=== PATIENT | female | born 1940 | race Caucasian/White ===

== ENCOUNTER 2018-03-24 11:52 | Outpatient (CLI) | payer MEDICARE, MEDICAID ==
[2018-03-24 13:32] LABS: Estimated GFR-MDRD - POC Greater than 90
--- NOTE | 2018-03-24 13:32 | CT ---
CT CHEST AND ABDOMEN AND PELVIS WITH CONTRAST: Multiple axial tomograms were obtained through the chest, abdomen, and pelvis with IV enhancement. INDICATION: Sarcoma left back. Exam performed for staging. No comparison available. FINDINGS: CT CHSST: The lung rashid appear clear. No pulmonary mass or infiltrate seen. No evidence of effusion. The m ediastinum is unremarkable. There is a large fixed diaphragmatic hernia with portion of the stomach above the diaphragm. Thoracic aorta and proximal pulmonary arteries are opacified and appear unremar kable. Mild atherosclerotic changes involving the thoracic aorta. No evidence of axillary adenopath y. Degenerative spurring changes are seen. The thoracic vertebrae maintain height and alignment. N o osseous abnormality identified. IMPRESSION: Large fixed diaphragmatic hernia in the lower chest. No acute lung process or evidence of metastasis . CT ABDOMEN AND PELVIS: There is a large multilobulated cyst in the right lobe of the liver which measures up to 7 cm. There are a few other scattered tiny cystic lesions in the liver. The liver, spleen, and pancreas are oth erwise unremarkable. The fixed diaphragmatic hernia is again seen as described on chest CT. Adrenal glands normal. There are at least 2 right renal cysts, 1 measuring approximately 2.6 cm and the other measuring appr oximately 1.6 cm. Kidneys are otherwise unremarkable. Small bowel loops appear normal. Scattered diverticula throughout the colon. Aorta is normal caliber. No evidence of adenopathy identified. Uterus and adnexa appear unremarkable. Small umbilical hernia is noted. Severe degenerative changes at both hips. The femoral heads are deformed with severe hypertrophic an d subchondral cystic changes on both sides of the joints bilaterally. There is a large heterogeneous soft tissue mass involving the subcutaneous tissues of the left flank region. This begins at the level of the posterolateral 9th rib. This large soft tissue mass measure s approximately 15 cm AP dimension x 11 cm width in the axial plane. It produces mass effect on the posterior musculature of the chest wall, but there is no evidence of muscle involvement. IMPRESSION: 1. Large soft tissue mass in the subcutaneous tissues of the left flank region as described. 2. Large hepatic cyst with other scattered smaller cysts. 3. Fixed diaphragmatic hernia. 4. Right renal cyst. 5. Tiny umbilical hernia. POS: [facility]
== END 2018-03-24 11:53 | disposition home or self-care (01) ==
LOC: CT 11:52
PROVIDERS: ATTEND Radiology Radiation Oncology
DX: C49.6 Malignant neoplasm of connective and soft tissue of trunk, unspecified (principal); K76.89 Other specified diseases of liver; K44.9 Diaphragmatic hernia without obstruction or gangrene; N28.1 Cyst of kidney, acquired; K42.9 Umbilical hernia without obstruction or gangrene
CPT/HCPCS: 71260; 74177; 82565

== ENCOUNTER 2018-06-22 16:35 | Inpatient (IN) | payer MEDICARE, MEDICAID ==
[~2018-06-22 16:35] MED LIST: ISOVUE-370 76%-LOCM 1 ML ONE
[2018-06-22 17:31] LABS: #Eosinphils 0.1 thou/uL (0.0-0.7); #Lymphocytes 1.6 thou/uL (1.20-3.40); #Monocytes 1.3 thou/uL (0.11-0.59); #Neutrophils 14.4 thou/uL (1.40-6.50); %Basophils 0.1 % (0.0-1.0); %Eosinophils 0.7 % (0.0-10.0); %Lymphocytes 9.3 % (21.0-51.0); %Monocytes 7.4 % (0.0-10.0); %Neutrophils 82.5 % (42.0-75.0); Hemoglobin 8.8 g/dL (12.0-16.0); Mean Corpuscular HGB CONC 31.7 g/dL (32.0-36.0); Mean Corpuscular Hemoglobin 26.5 pg (27.0-31.0); Mean Corpuscular Volume 83.7 fL (78.0-98.0); Mean Platelet Volume 7.3 fL (7.4-10.4); Platelet Count 821 thou/uL (130-400); RBC Distribution Width 17.1 % (11.5-14.5); Red Blood Cell (RBC) Count 3.33 mill/uL (4.20-5.40); White Blood Cell (WBC) Count 17.5 thou/uL (4.8-10.8)
[2018-06-22 17:42] LABS: Bilirubin Negative (Negative); Blood, Urine Negative (Negative); Clarity CLEAR (Clear); Glucose, Urine (Dipstick) Negative (Negative); Leukocyte Negative (Negative); Nitrite Negative (Negative); Protein, Urine (Dipstick) Negative (Neg-Trace); Specific Gravity, Urine 1.009 (1.002-1.036); Urobilinogen 0.2 mg/dL (0.2-1.0)
[2018-06-22 18:43] LABS: ALT (SGPT) 38 U/L (8-55); AST (SGOT) 47 U/L (5-34); Albumin 2.8 g/dL (3.4-4.8); Alkaline Phosphatase 176 U/L (40-150); Anion Gap 20 mmol/L (10-20); BUN (Urea Nitrogen) 10 mg/dL (9.8-20.1); Bilirubin, Total 0.4 mg/dL (0.2-1.2); Calc. Creatinine Clearance 0 mL/min (70-130); Calcium 9.3 mg/dL (7.8-10.44); Carbon Dioxide 21 mmol/L (23-31); Chloride 103 mmol/L (98-107); Estimated GFR-MDRD 74; Globulin 3.4 g/dL (2.4-3.5); Glucose 134 mg/dL (83-110); Potassium 4.2 mmol/L (3.5-5.1); Protein, Total 6.2 g/dL (6.0-8.3); Sodium 140 mmol/L (136-145)
--- NOTE | 2018-06-22 18:49 | RAD ---
PORTABLE CHEST 06/22/18 PROVIDED CLINICAL HISTORY: Lower extremity swelling. FINDINGS: The cardiac silhouette appears enlarged. No focal consolidation, pleural fluid, or pneumothorax appar ent. Calcified costochondral cartilage is noted. Hiatal hernia is noted. IMPRESSION: Cardiomegaly without evidence for an acute cardiopulmonary process. POS: [facility]
--- NOTE | 2018-06-22 19:54 | ULT ---
BILATERAL LOWER EXTREMITY VENOUS DOPPLER 06/22/18 PROVIDED CLINICAL HISTORY: Bilateral lower extremity swelling. FINDINGS: Mattson scale and color doppler sonography of the common femoral, femoral, popliteal, posterior tibial, greater saphenous and profunda femoral veins was performed. The right femoral vein and right poplitea l vein were not visualized on the basis of technical factors. The remainder of the interrogated venou s structures of the lower extremities demonstrate a normal sonographic appearance. IMPRESSION: No sonographic evidence for lower extremity deep venous thrombosis with limitations as above. POS: [facility]
[2018-06-22] MEDS ORDERED: Acetaminophen 325 MG TAB ONE (20:17)
--- NOTE | 2018-06-22 21:51 | CT ---
CT PULMONARY ANGIOGRAM WITH IV CONTRAST AND 3D MIP RECONSTRUCTIONS 06/22/18 PROVIDED CLINICAL HISTORY: Shortness of breath and chest pain. FINDINGS: Comparison is made with the study dated 03/24/18. There is no evidence for central or segmental pulmonary embolus. The heart, pericardium and great ves sels demonstrate a stable CT appearance. There is interval development of a small left pleural effusi on. The lungs are free of significant opacity. The airway appears patent and of normal caliber. Moder ate to large hiatal hernias are demonstrated. No evidence for pneumothorax. Right hepatic cyst is aga in seen. Partially visualized large left flank soft tissue mass. IMPRESSION: 1. No evidence for central or segmental pulmonary embolus. 2. Interval development of small left pleural effusion. POS: [facility]
--- NOTE | 2018-06-22 21:57 | PDOC.FPRHP ---
- History of Present Illness Chief Complaint: swelling History of Present Illness: The patient is a 78YOF w/ a PMH significant for recently diagnosed DMII and a rare untreated sarcoma who presented to the ED with a CC of LE swelling that has gotten progressively worse since her discharge from [facility] about 1 week ago. The patient stated that immediately following her discharge she felt to be in her usual state of health but about 24 hours later, she began to have a steady decline reporting progressively worsening lower extremity swelling with associated weakness and fatigue. She denies any associated SOB, PND, orthopnea, chest or abdominal pain. She denies ever having had any type of cardiac workup before. 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 She was also given IV abx for 6 days for an unknown infection. Regarding her sarcoma, the patient reports being started on a 1 week trial of gleevac approx 6 months ago during which she became anuric. She therefore stopped taking it and and anuria resolved. She was recommended to follow-up at at [facility] but has been unable to get this set up 2/2 poor recent state of health. ED Course: 40mg IV lasix x1 & 650 PO tylenol - Allergies/Adverse Reactions Allergies Allergy/AdvReac Type Severity Reaction Status Date / Time No Known Drug Allergies Allergy Verified 06/22/18 23:37 - Home Medications Medication Instructions Recorded Confirmed Type Furosemide 1 tab PO DAILY 06/22/18 06/22/18 History Potassium Chloride 1 tab PO DAILY 06/22/18 06/22/18 History metFORMIN HCl [Metformin HCl] 1 tab PO BID 06/22/18 06/22/18 History - History PMHx: DMII, untreated sarcoma PSHx: ovarian cystectomy FHx: non-contributory Social: Lives at home alone in . Denies any tobacco or drug use. Drinks on special occasions. - Review of Systems General: reports: fatigue. denies: fever/chills, weight/appetite/sleep changes Eyes: denies: eye pain, vision changes ENT: reports: other (no sore throat). denies: nasal congestion Respiratory: reports: cough. denies: shortness of breath Cardiovascular: reports: edema. denies: chest pain, palpitation, paroxysmal nocturnal dyspnea, orthopnea Gastrointestinal: denies: nausea, vomiting, diarrhea, constipation, abdominal pain Genitourinary: reports: other (no hematuria). denies: dysuria Musculoskeletal: reports: pain, tenderness, swelling Neurological: denies: numbness, syncope, weakness Psychological: denies: anxiety, depression - Vital signs BP: 168/72 HR: 100 RR: 20 Tmax: 98.4F Pox: 95% on RA Wt: 82.971 kg - Physical Exam Constitutional: NAD, awake, alert and oriented, well developed HEENT: normocephalic and atraumatic, grossly normal vision, grossly normal hearing Neck: supple, FROM, other (JVD present bilaterally) Heart: normal S1/S2, pulses present, other (tachycardic with 3/6 systolic flow murmur heard best at right upper border 3+ pitting edema present in B/L LEs up to knees) Lungs: CTAB, no respiratory distress, good air movement, no rales/rhonchi, no wheezing Abdomen: soft, non-tender, bowel sounds present, other (midline abdominal hernia present just superior to umbilicus that was easily reduced & NTTP) Musculoskeletal: normal structure, ROM grossly normal Neurological: no focal deficit, CN II-XII intact Skin: no rash/lesions, good turgor, other (large soft tissue mass present on patient's left flank NTTP covered in a dry, clean, and intact dressing) Heme/Lymphatic: no unusual bruising or bleeding, no purpura, no petechia Psychiatric: normal mood and affect, good judgment and insight, intact recent and remote memory FMR H&P: Results - Labs Result Diagrams: 06/22/18 17:09 06/22/18 17:09 Lab results: WBC 17.5 thou/uL (4.8-10.8) H 06/22/18 17:09 Hgb 8.8 g/dL (12.0-16.0) L 06/22/18 17:09 Hct 27.9 % (36.0-47.0) L 06/22/18 17:09 MCV 83.7 fL (78.0-98.0) 06/22/18 17:09 Plt Count 821 thou/uL (130-400) H 06/22/18 17:09 Neutrophils % 82.5 % (42.0-75.0) H 06/22/18 17:09 Sodium 140 mmol/L (136-145) 06/22/18 17:09 Potassium 4.2 mmol/L (3.5-5.1) 06/22/18 17:09 Chloride 103 mmol/L (98-107) 06/22/18 17:09 Carbon Dioxide 21 mmol/L (23-31) L 06/22/18 17:09 BUN 10 mg/dL (9.8-20.1) 06/22/18 17:09 Creatinine 0.76 mg/dL (0.6-1.1) 06/22/18 17:09 Glucose 134 mg/dL (83-110) H 06/22/18 17:09 Lactic Acid 2.0 mmol/L (0.5-2.2) 06/22/18 17:09 Calcium 9.3 mg/dL (7.8-10.44) 06/22/18 17:09 Total Bilirubin 0.4 mg/dL (0.2-1.2) 06/22/18 17:09 AST 47 U/L (5-34) H 06/22/18 17:09 ALT 38 U/L (8-55) 06/22/18 17:09 Alkaline Phosphatase 176 U/L (40-150) H 06/22/18 17:09 B-Natriuretic Peptide 414.5 pg/mL (0-100) H 06/22/18 17:09 Serum Total Protein 6.2 g/dL (6.0-8.3) 06/22/18 17:09 Albumin 2.8 g/dL (3.4-4.8) L 06/22/18 17:09 Urine Ketones Negative mg/dL (Negative) 06/22/18 16:45 Urine Blood Negative (Negative) 06/22/18 16:45 Urine Nitrite Negative (Negative) 06/22/18 16:45 Ur Leukocyte Esterase Negative (Negative) 06/22/18 16:45 Additional comment: troponin I negative x 2 TSH 1.6161 - EKG Interpretation EKG: tachycardia w/ T wave inversions in leads III, aVF, & V3-V5 - Radiology Interpretation Chest x-ray Status: report reviewed by me (cardiomegaly with no acute cardiopulmonary process) US - venous Status: report reviewed by me (no evidence of DVT in B/L LEs) Other Additional comment: Chest CTA negative for PE w/ a small L-sided pleural effusion noted. FMR H&P: A/P - Problem List (1) Bilateral lower extremity edema Current Visit: Yes Status: Acute Code(s): R60.0 - LOCALIZED EDEMA (2) DMII (diabetes mellitus, type 2) Current Visit: Yes Status: Chronic (3) HTN (hypertension) Current Visit: Yes Status: Suspected Code(s): I10 - ESSENTIAL (PRIMARY) HYPERTENSION (4) Sarcoma Current Visit: Yes Status: Chronic Code(s): C49.9 - MALIGNANT NEOPLASM OF CONNECTIVE AND SOFT TISSUE, UNSP (5) CHF (congestive heart failure) Current Visit: Yes Status: Suspected Code(s): I50.9 - HEART FAILURE, UNSPECIFIED Qualifiers: Heart failure chronicity: acute on chronic - Plan 78YO female with a PMH significant for 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 bilateral LE edema 2/2 suspected CHF: - Patient presented with significant LE edema but denies any associated PND, orthopnea, etc. However BNP elevated just over 400. Doppler U/S negative for DVTs. Could also be 2/2 chronic venous insufficiency and TSH WNLs ruling out hypothyroidism. - s/p 40mg IV lasix in the ED. Will continue 40mg IV lasix QD for now since patient is lasix naive. - Will order an echo to be done in the AM and in the meantime will treat like an acute CHF exacerbation w/ strict Is&Os & daily weights. Will also start on a HH, low sodium, fluid restricted diet. Suspected HTN: - Patient denies any h/o HTN; however, BP was elevated at 168/72 on exam. - Will continue to monitor BP closely overnight and will consider initiating antihypertensive in the AM. Normocytic anemia: - Aware, patient is s/p 2 units of PRBCs just over 1 week ago. Likely 2/2 blood loss and chronic disease. - Will consider anemia workup while inpatient and continue to monitor Hgb closely w/ QD CBCs. DMII: - Per patient she is controlling her diabetes with her diet only. Reports postprandial BG levels to be over 200. - Will get an AM Hgb A1c and start on CC diet & SSI for now. - Will order ACHS accuchecks as well. Untreated sarcoma: - Aware, will consult wound care and consider consulting CM in the AM to assist patient with follow-up with [facility] if possible. SIRS with unknown source: - Tachycardic just over 100 with a WBC of 17.5 on presentation. - UA and CXR negative for any infection. - Likely 2/2 stress from suspected CHF exacerbation. - Will continue to monitor vitals closely and get QD AM CBCs to trend WBC. Thrombocytosis: - Likely 2/2 malignancy. - Will continue to monitor w/ QD CBCs. General deconditioning: - CM consulted for placement upon d/c. - PT and OT consulted. PCP: [facility] Diet: HH/CC with low sodium & fluid restrictions DVT ppx: lovenox GI ppx: none Abx: none Dispo: Will continue to diurese and admit to observation for now. Will change to inpatient PRN pending echo results. Regardless, will consult CM as patient would most definitely benefit from a short rehab vs. SNF stay 2/2 deconditioning. Code status: Full FMR H&P: Upper Level - Pertinent history 78 y old female with PMH significant for untreated sarcoma who presents for progressively worsening lower extremity edema. Denies SOB, PND, orthopnea, chest pain, abdominal pain. She has a recent stay at [facility] for hemorrhage from her skin/sarcoma cancer. Apparently reports being treated with IV abx for 6 days for "unknown infection." After DC reports legs began to swell. Got a script for lasix earlier today but feels extremely weak and fatigued. Reports a 1 week trial of gleevac approx 6 months ago for the sarcoma. States she quit gleevac when she became anuric and this improved after stopping med. Desires treatment at [facility] but has been unable to get this set up. - Pertinent findings EKG: sinus tachycardia, no ST elevation, Leads 2,3,AVF, V3,4,5,6 T-wave inversion bilateral LE venous doppler: no DVT CTA chest: no evidence for PE, small left sided pleural effusion Gen: no acute distress, slightly anxious, lying flat in bed Neck: JVD present Heart: RRR, no murmurs, rubs, gallops Lungs: CTAB, no wheezes, rhales, crackles, rhonchi Abd: soft, NTTP, large left sided flank soft tissue mass, covered in bandage Ext: 3+ pitting edema up to bilateral knees - Plan Date/Time: 06/22/182155 I, [Josefina Valdez], have evaluated this patient and agree with findings/plan as outlined by application internship resident. Pertinent changes/additions are listed here. 78 yr old female with new onset bilateral lower extremity edema bilateral LE edema concerning for new onset heart failure -BLE edema in presence of JVD -BNP elevated to 414 -obtain ECHO -check TSH -cont diureis with lasix -strict I/O -CC/HH diet with fluid restrict New onset HTN -start lisinopril in anticipation of HF normocytic anemia likely 2/2 recent blood loss -recently required 2 units PRBC 2/2 hemorrhage from sarcoma -will start BID ferrous sulfate -consider checking iron studies -will try to obtain records from [facility] Sarcoma -will need outpatient f/u unless appears to be clinically related Diabetes Mellitus -patient reports new diagnosis -not on meds -check qACHS accucheck -check A1C -PRN mild SSI PCP: [facility] Diet: HH/CC with fluid restrict DVT ppx: lovenox GI ppx: none Dispo: will admit to observation however if heart failure is confirmed will change to inpatient with likely 2 day hospital stay pending diuresis. Suspect may benefit from discharge to rehab vs SNF. Consult case mgmt in anticipation. Code status: Full Addendum - Attending - Attending Attestation Date/Time: 06/22/18 [id number] I personally evaluated the patient and discussed the management with Dr. Rizzo I agree with the History, Examination, Assessment and Plan documented above with any addition or exceptions noted below - 78 yo female with h/o sarcoma on left flank and newly diagnosed DM who presented with new onset of lower extremity edema. Patient states that she was hospitalized at [facility] recently due to bleeding from her sarcoma on left flank. She reports being transfused 2 units of blood and received IVF. She states that she was discharged 1 week ago and the day after discharged she noted significant swelling in her legs. She denies any associated SOB, chest pain, or orthopnea. Has not had any previous problems with edema. Denies any fever chills, abdominal pain or bloating, N/V/ D. PMH/PSH/Meds/ All reviewed and agree with resident's documentation. Afebrile P104 RR20 BP 168/72 95% RA Exam repeated by me and agree with resident's findings. Labs: WBC=17.5, H/H=8.8/27.9, Lyj=438, Op=003, K=4.2, Ac=409, CO2=21, BUN/Cr=10/0.76, Gidm=788, lactic acid=2.0, VNP= 414.5, TSH=1.6161, AST/ALT=47/38 , Alk mafq=899, alb=2.8, D-dimer=1.51, CT angio chest- negative for PE, Venogram - negative for DVT. A/P: 1) New onset pedal edema and elevated BNP- no prior h/ o any heart problems per patient- will check echo; continue lasix; monitor I/O, lytes. 2) Anemia - recent h/o bleeding from tumor site; continue to monitor. Obtain records from [facility]. 3) Recently diagnosed DM- monitor acuuchecks.
[2018-06-22] MEDS ORDERED: Furosemide 40 MG/4 ML VIAL ONE (21:59)
[2018-06-22 23:11] LABS: Troponin I Less than 0.010 ng/mL (< 0.028)
[2018-06-22] MEDS ORDERED: Dextrose 50% Abboject 50 ML SYRINGE SLOW IVP PRN (23:59)
[2018-06-22] MEDS ORDERED: HumaLOG 300 UNITS/3 ML VIAL SC PRN (23:59)
[2018-06-22] MEDS ORDERED: Ondansetron ODT 4 MG TAB PO PRN (23:59)
[2018-06-22] MEDS ORDERED: Dextrose 5% in Water 1,000 ML IV PRN (23:59)
[2018-06-23] MEDS: Acetaminophen 325 MG TAB PO PRN ×4 (00:42→15:01)
[2018-06-23] MEDS: Melatonin 3 MG TAB PO PRN (00:42)
[2018-06-23 01:29] LABS: Troponin I Less than 0.010 ng/mL (< 0.028)
[2018-06-23 04:50] LABS: #Eosinphils 0.1 thou/uL (0.0-0.7); #Lymphocytes 1.3 thou/uL (1.20-3.40); #Monocytes 1.1 thou/uL (0.11-0.59); #Neutrophils 11.5 thou/uL (1.40-6.50); %Basophils 0.2 % (0.0-1.0); %Eosinophils 0.8 % (0.0-10.0); %Lymphocytes 9.4 % (21.0-51.0); %Monocytes 7.6 % (0.0-10.0); Hemoglobin 8.2 g/dL (12.0-16.0); Mean Corpuscular HGB CONC 31.2 g/dL (32.0-36.0); Mean Corpuscular Hemoglobin 25.9 pg (27.0-31.0); Mean Corpuscular Volume 83.1 fL (78.0-98.0); Mean Platelet Volume 7.3 fL (7.4-10.4); Platelet Count 497 thou/uL (130-400); RBC Distribution Width 16.4 % (11.5-14.5); Red Blood Cell (RBC) Count 3.16 mill/uL (4.20-5.40)
[2018-06-23 04:53] LABS: Hemoglobin A1c 6.9 % (4.0-6.0)
[2018-06-23 05:11] LABS: ALT (SGPT) 26 U/L (8-55); AST (SGOT) 23 U/L (5-34); Albumin 2.4 g/dL (3.4-4.8); Alkaline Phosphatase 145 U/L (40-150); Anion Gap 14 mmol/L (10-20); BUN (Urea Nitrogen) 7 mg/dL (9.8-20.1); Bilirubin, Total 0.3 mg/dL (0.2-1.2); Calc. Creatinine Clearance 99 mL/min (70-130); Calcium 8.5 mg/dL (7.8-10.44); Carbon Dioxide 24 mmol/L (23-31); Chloride 101 mmol/L (98-107); Estimated GFR-MDRD Greater than 90; Globulin 2.7 g/dL (2.4-3.5); Glucose 139 mg/dL (83-110); Magnesium 1.6 mg/dL (1.6-2.6); Potassium 3.3 mmol/L (3.5-5.1); Protein, Total 5.1 g/dL (6.0-8.3); Sodium 136 mmol/L (136-145)
--- NOTE | 2018-06-23 06:24 | PDOC.FM ---
- Subjective Subjective: Ms. Bowens says she has not eaten anything since yesterday morning. Her sarcoma is not bleeding. She has been peeing frequently and says her swelling has improved minimally. - Objective MAR Reviewed: Yes Vital Signs & Weight: Vital Signs (12 hours) Temp Pulse Resp BP Pulse Ox 06/23/18 04:00 97.3 F L 81 18 132/63 97 06/22/18 22:55 98.6 F 94 20 144/63 H 98 Weight Weight 82.917 kg Result Diagrams: 06/23/18 04:26 06/23/18 04:26 Phys Exam - Physical Examination Constitutional: NAD Respiratory: clear to auscultation bilateral Cardiovascular: RRR, no significant murmur Gastrointestinal: soft, non-tender, no distention, positive bowel sounds 3+ pitting edema b/l up to knees, L side sarcina in bandage Neurological: non-focal Psychiatric: normal affect Skin: normal turgor, cap refill <2 seconds Dx/Plan (1) Bilateral lower extremity edema Code(s): R60.0 - LOCALIZED EDEMA Status: Acute (2) Hypokalemia Code(s): E87.6 - HYPOKALEMIA Status: Acute (3) DMII (diabetes mellitus, type 2) Status: Chronic (4) Sarcoma Code(s): C49.9 - MALIGNANT NEOPLASM OF CONNECTIVE AND SOFT TISSUE, UNSP Status : Chronic (5) CHF (congestive heart failure) Code(s): I50.9 - HEART FAILURE, UNSPECIFIED Status: Suspected Qualifiers: Heart failure chronicity: acute on chronic (6) HTN (hypertension) Code(s): I10 - ESSENTIAL (PRIMARY) HYPERTENSION Status: Suspected - Plan Plan: 78YO female with a PMH significant for 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 Bilateral LE edema 2/2 suspected CHF: - BNP 414 - Echo pending today - strict I/Os, daily weights, low sodium diet - No output recorded yet - s/p 40mg IV lasix in the ED. Will continue 40mg IV lasix QD Hypokalemia - 3.3 this am, replaced with 20 meq Possible HTN: - Patient denies any h/o HTN; however, BP was elevated at 168/72 on admission - BP 132/62 this am, will not start BP med at this time Normocytic anemia: - Aware, patient is s/p 2 units of PRBCs just over 1 week ago. Likely 2/2 blood loss and chronic disease. - Monitor on CBCs, consider starting iron supplementation DMII: - Recently diagnoses, diet controlled - A1c 6.9 Untreated sarcoma: - Consult wound care - CM in the AM to assist patient with follow-up with [facility] if possible. SIRS with unknown source: - Tachycardic just over 100 with a WBC of 17.5 on presentation. Both have improved. - UA and CXR negative for any infection. - Likely 2/2 stress from suspected CHF exacerbation. - Continue to monitor VS and labs Thrombocytosis: - Likely 2/2 malignancy. - Monitor on CBC General deconditioning: - CM consulted for placement upon d/c. - PT and OT consulted. PCP: [facility] Diet: HH/CC with low sodium & fluid restrictions DVT ppx: lovenox GI ppx: none Abx: none Dispo: Pending working. CM assistance as patient would most definitely benefit from a short rehab vs. SNF stay 2/2 deconditioning at time of discharge. Code status: Full Addendum - Attending - Attending Attestation Date/Time: 06/23/18 [id number] I personally evaluated the patient and discussed the management with Dr. Delgado. I agree with the History, Examination, Assessment and Plan documented above with any addition or exceptions noted below. The patient's sarcoma is not currently bleeding but is likely source of anemia. Will start iron and trend h/h. Will continue iv lasix for diuresis. Echo is pending to evaluate for heart failure. Edema is minimally improved. Replacing potassium.
[2018-06-23] MEDS ORDERED: Potassium Chloride 20 MEQ TAB PO SCH (06:30)
[2018-06-23] MEDS: Enoxaparin Sodium 40 MG/0.4 ML SYRINGE SC SCH (10:05)
[2018-06-23] MEDS: Furosemide 40 MG/4 ML VIAL SLOW IVP SCH (10:06)
[2018-06-24] MEDS: Acetaminophen 325 MG TAB PO PRN ×3 (02:39→17:18)
[2018-06-24 04:54] LABS: #Eosinphils 0.1 thou/uL (0.0-0.7); #Lymphocytes 1.3 thou/uL (1.20-3.40); #Neutrophils 13.9 thou/uL (1.40-6.50); %Basophils 0.1 % (0.0-1.0); %Eosinophils 0.8 % (0.0-10.0); %Lymphocytes 7.7 % (21.0-51.0); %Monocytes 6.4 % (0.0-10.0); Hemoglobin 7.7 g/dL (12.0-16.0); Mean Corpuscular HGB CONC 31.6 g/dL (32.0-36.0); Mean Corpuscular Hemoglobin 26.2 pg (27.0-31.0); Platelet Count 688 thou/uL (130-400); RBC Distribution Width 16.3 % (11.5-14.5); Red Blood Cell (RBC) Count 2.95 mill/uL (4.20-5.40); White Blood Cell (WBC) Count 16.3 thou/uL (4.8-10.8)
[2018-06-24 05:01] LABS: ALT (SGPT) 23 U/L (8-55); AST (SGOT) 15 U/L (5-34); Albumin 2.2 g/dL (3.4-4.8); Alkaline Phosphatase 130 U/L (40-150); Anion Gap 13 mmol/L (10-20); BUN (Urea Nitrogen) 12 mg/dL (9.8-20.1); Bilirubin, Total 0.2 mg/dL (0.2-1.2); Calc. Creatinine Clearance 95 mL/min (70-130); Calcium 8.2 mg/dL (7.8-10.44); Carbon Dioxide 27 mmol/L (23-31); Chloride 102 mmol/L (98-107); Estimated GFR-MDRD Greater than 90; Globulin 2.4 g/dL (2.4-3.5); Glucose 165 mg/dL (83-110); Protein, Total 4.6 g/dL (6.0-8.3); Sodium 139 mmol/L (136-145)
[2018-06-24] MEDS ORDERED: Polyethylene Glycol 3350 17 GM Packet PO PRN (06:08)
--- NOTE | 2018-06-24 06:15 | PDOC.FM ---
- Subjective Subjective: Patient notes she feels much better today. Swelling is going down, able to lay more comfortably. No other complaints. Awaiting echo. - Objective MAR Reviewed: Yes Vital Signs & Weight: Vital Signs (12 hours) Temp Pulse Resp BP Pulse Ox 06/24/18 04:00 98.3 F 84 18 132/63 96 06/24/18 00:00 97.7 F 86 18 126/88 98 06/23/18 20:00 97.5 F L 94 18 119/56 L 95 Weight Admit Weight 82.917 kg Weight 78.154 kg I&O: 06/22/18 06/23/18 06/24/18 06:59 06:59 06:59 Intake Total 960 Output Total 1900 Balance -940 Result Diagrams: 06/24/18 04:04 06/24/18 04:04 Phys Exam - Physical Examination Constitutional: NAD HEENT: moist MMs Respiratory: no wheezing, clear to auscultation bilateral Cardiovascular: RRR, no significant murmur Gastrointestinal: soft, non-tender, no distention, positive bowel sounds 2+ pitting edema b/l LE significantly improved. 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 Neurological: non-focal Psychiatric: normal affect Skin: normal turgor Dx/Plan (1) Bilateral lower extremity edema Code(s): R60.0 - LOCALIZED EDEMA Status: Acute (2) Hypokalemia Code(s): E87.6 - HYPOKALEMIA Status: Acute (3) DMII (diabetes mellitus, type 2) Status: Chronic (4) Sarcoma Code(s): C49.9 - MALIGNANT NEOPLASM OF CONNECTIVE AND SOFT TISSUE, UNSP Status : Chronic (5) CHF (congestive heart failure) Code(s): I50.9 - HEART FAILURE, UNSPECIFIED Status: Suspected Qualifiers: Heart failure chronicity: acute on chronic (6) HTN (hypertension) Code(s): I10 - ESSENTIAL (PRIMARY) HYPERTENSION Status: Suspected - Plan Plan: 78YO female with a PMH significant for 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 Bilateral LE edema 2/2 suspected CHF: - BNP 414 - Echo pending today - strict I/Os, daily weights, low sodium diet - Output -940 recorded in past 24hrs - continue 40mg IV lasix QD Hypokalemia - 3.0 this am, phosphorus normal. - give 40 meq today, recheck in am. Possible HTN: - Patient denies any h/o HTN; however, BP was elevated at 168/72 on admission - BP 132/63 this am, will not start BP med Normocytic anemia: - Aware, patient is s/p 2 units of PRBCs just over 1 week ago. Likely 2/2 blood loss and chronic disease. - Monitor on CBCs, continue iron supplementation. Miralax prn. DMII: - Recently diagnosed, diet controlled - A1c 6.9 Untreated sarcoma: - Consult wound care - CM in the AM to assist patient with follow-up with [facility] if possible. SIRS with unknown source: - Tachycardic just over 100 with a WBC of 17.5 on presentation. Both have improved. - UA and CXR negative for any infection. - Likely 2/2 stress from suspected CHF exacerbation. - Continue to monitor VS and labs Thrombocytosis: - Likely 2/2 malignancy. - Monitor on CBC General deconditioning: - CM consulted for placement upon d/c. - PT and OT consulted. PCP: [facility] Diet: HH/CC with low sodium & fluid restrictions DVT ppx: lovenox GI ppx: none Abx: none Dispo: Pending working. CM assistance as patient would most definitely benefit from a short rehab vs. SNF stay 2/2 deconditioning at time of discharge. Code status: Full Addendum - Attending - Attending Attestation Date/Time: 06/24/18 1025 I personally evaluated the patient and discussed the management with Dr. Delgado. I agree with the History, Examination, Assessment and Plan documented above with any addition or exceptions noted below. The patient's lower extremity edema is improving with IV lasix. Will continue. Pt is anemic and Hb mildly decreased. Will continue to trend. Echo pending. Leukocytosis likely 2/2 sarcoma. Wound photos reviewed.
[2018-06-24 06:38] LABS: Phosphorus 3.3 mg/dL (2.3-4.7)
[2018-06-24] MEDS ORDERED: Potassium Chloride 20 MEQ TAB PO SCH (09:45)
[2018-06-24] MEDS: Ferrous Sulfate 325 MG TAB PO SCH (10:00)
[2018-06-24] MEDS: Furosemide 40 MG/4 ML VIAL SLOW IVP SCH (10:01)
[2018-06-24] MEDS: Enoxaparin Sodium 40 MG/0.4 ML SYRINGE SC SCH (10:01)
[2018-06-24] MEDS ORDERED: metFORMIN 500 MG TAB PO SCH (11:00)
--- NOTE | 2018-06-24 14:22 | PDOC.EVN ---
Event Note - Event Note Event Note: Spoke with family members about patient. They say patient is very unreliable and dishonest about her medical care. They say she will tell people she hasn't been to [facility] [place] due to lack of transport, but family has been more than willing to take her there. She has previous nurse friend that has been bandaging her wound at home. Patient says home health refused to come more than once a week. Family unsure what services or how often she is receiving them. They also note she was on Vancomycin for a while during previous hospitalization at the [facility]. Apparently she mentioned to her friend that they tried to discharge her to rehab but she refused. Family believes patient is unsafe and unable to care for herself at home and would benefit from a SNF or rehab placement. Patient says she was put on bergamot citrus for her cholesterol which works great. Patient not interested in statin. Family says patient has 20 bottles of various supplements at home, they are unsure what she is taking. Patient has uninvolved son in town. Daughter and son along with their spouses are most involved in her care and live out of town. Son, Don, would like daily updates if possible, . If he is unavailable please call son-in-law Kyler, .
[2018-06-24] MEDS: metFORMIN 500 MG TAB PO SCH (17:11)
[2018-06-24] MEDS: Ibuprofen 800 MG TAB PO PRN (21:06)
--- NOTE | 2018-06-24 22:12 | EKG ---
Test Reason : Blood Pressure : / mmHG Vent. Rate : 109 BPM Atrial Rate : 109 BPM P-R Int : 152 ms QRS Dur : 074 ms QT Int : 380 ms P-R-T Axes : 051 -03 -35 degrees QTc Int : 511 ms Sinus tachycardia Cannot rule out Anterior infarct , age undetermined T wave abnormality, consider lateral ischemia T wave inversion III, aVF, V3-V5 Abnormal ECG Confirmed by PARKER LAM DO ([id number]), editor farm journal ROXANA HER ([id number]) on 06/24/2018 10:11:40 PM Referred By: Confirmed By:PARKER LAM DO
[2018-06-25] MEDS: Acetaminophen 325 MG TAB PO PRN (00:47)
[2018-06-25 05:25] LABS: #Eosinphils 0.2 thou/uL (0.0-0.7); #Lymphocytes 1.4 thou/uL (1.20-3.40); #Monocytes 1.3 thou/uL (0.11-0.59); #Neutrophils 12.4 thou/uL (1.40-6.50); %Basophils 0.2 % (0.0-1.0); %Eosinophils 1.2 % (0.0-10.0); %Monocytes 8.4 % (0.0-10.0); %Neutrophils 81.2 % (42.0-75.0); Hemoglobin 8.2 g/dL (12.0-16.0); Mean Corpuscular HGB CONC 30.6 g/dL (32.0-36.0); Mean Corpuscular Hemoglobin 25.9 pg (27.0-31.0); Mean Corpuscular Volume 84.6 fL (78.0-98.0); Mean Platelet Volume 6.5 fL (7.4-10.4); Platelet Count 718 thou/uL (130-400); RBC Distribution Width 16.2 % (11.5-14.5); Red Blood Cell (RBC) Count 3.16 mill/uL (4.20-5.40); White Blood Cell (WBC) Count 15.3 thou/uL (4.8-10.8)
[2018-06-25 05:53] LABS: ALT (SGPT) 16 U/L (8-55); AST (SGOT) 11 U/L (5-34); Albumin 2.3 g/dL (3.4-4.8); Alkaline Phosphatase 133 U/L (40-150); Anion Gap 16 mmol/L (10-20); BUN (Urea Nitrogen) 15 mg/dL (9.8-20.1); Bilirubin, Total 0.2 mg/dL (0.2-1.2); Calc. Creatinine Clearance 87 mL/min (70-130); Calcium 8.3 mg/dL (7.8-10.44); Carbon Dioxide 25 mmol/L (23-31); Chloride 103 mmol/L (98-107); Estimated GFR-MDRD 87; Globulin 2.5 g/dL (2.4-3.5); Glucose 221 mg/dL (83-110); Potassium 3.7 mmol/L (3.5-5.1); Protein, Total 4.8 g/dL (6.0-8.3); Sodium 140 mmol/L (136-145)
--- NOTE | 2018-06-25 06:12 | PDOC.FM ---
- Subjective Subjective: Patient says she is feeling well this morning. Leg swelling continues to improve. Has no complaints. Agreeable to removing sandoval today. - Objective MAR Reviewed: Yes Vital Signs & Weight: Vital Signs (12 hours) Temp Pulse Resp BP BP Pulse Ox 06/25/18 04:31 98.1 F 88 16 147/65 H 96 06/25/18 00:21 98.6 F 93 18 133/81 95 06/24/18 20:15 98.6 F 95 16 149/67 H 97 Weight Admit Weight 82.917 kg Weight 75.886 kg I&O: 06/23/18 06/24/18 06/25/18 06:59 06:59 06:59 Intake Total 960 1260 Output Total 2500 2200 Balance -1540 -940 Result Diagrams: 06/25/18 05:15 06/25/18 05:15 Phys Exam - Physical Examination Constitutional: NAD HEENT: moist MMs Respiratory: clear to auscultation bilateral Cardiovascular: RRR, no significant murmur Gastrointestinal: soft, non-tender, no distention, positive bowel sounds +2 pitting edema b/ LE Neurological: non-focal Skin: cap refill <2 seconds Dx/Plan (1) Bilateral lower extremity edema Code(s): R60.0 - LOCALIZED EDEMA Status: Acute (2) Hypokalemia Code(s): E87.6 - HYPOKALEMIA Status: Acute (3) DMII (diabetes mellitus, type 2) Status: Chronic (4) Sarcoma Code(s): C49.9 - MALIGNANT NEOPLASM OF CONNECTIVE AND SOFT TISSUE, UNSP Status : Chronic (5) CHF (congestive heart failure) Code(s): I50.9 - HEART FAILURE, UNSPECIFIED Status: Chronic Qualifiers: Heart failure type: diastolic Heart failure chronicity: acute on chronic Qualified Code(s): I50.33 - Acute on chronic diastolic (congestive) heart failure (6) HTN (hypertension) Code(s): I10 - ESSENTIAL (PRIMARY) HYPERTENSION Status: Suspected - Plan Plan: 78YO female with a PMH significant for 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 Bilateral LE edema 2/2 diastolic CHF: - BNP 414 - Echo showed EF 55-60%, diastolic dysfunction - strict I/Os, daily weights, low sodium diet. Does have home med of lasix daily. - Output -940 recorded in past 24hrs - continue 40mg IV lasix QD, Cr has been stable. Hypokalemia, improved - 3.7 this am Possible HTN: - Patient denies any h/o HTN; however, BP was elevated at 168/72 on admission - BP 132/63 this am, will not start BP med Normocytic anemia: - Aware, patient is s/p 2 units of PRBCs just over 1 week ago. Likely 2/2 blood loss and chronic disease. - Monitor on CBCs, continue iron supplementation. Miralax prn. DMII: - Recently diagnosed, diet controlled. Continue home metformin. Takes bergamot for cholesterol and refuses statin. - A1c 6.9 Untreated sarcoma: - Consult wound care - CM in the AM to assist patient with follow-up with [facility] if possible. SIRS criteria, resolved - Tachycardic just over 100 with a WBC of 17.5 on presentation. Both have improved. - UA, Bcx, CXR negative for any infection. - Likely 2/2 stress from suspected CHF exacerbation. - Continue to monitor VS and labs Thrombocytosis: - Likely 2/2 malignancy. - Monitor on CBC General deconditioning: - CM consulted for placement upon d/c. - PT and OT consulted. PCP: [facility] Diet: HH/CC with low sodium & fluid restrictions DVT ppx: lovenox GI ppx: none Abx: none Dispo: Pending working. CM assistance as patient would most definitely benefit from a short rehab vs. SNF stay 2/2 deconditioning at time of discharge. Code status: Full Addendum - Attending - Attending Attestation Date/Time: 06/25/18 1232 I personally evaluated the patient and discussed the management with Dr. Delgado. I agree with the History, Examination, Assessment and Plan documented above with any addition or exceptions noted below. Diastolic dysfunction noted on echo. Will d/c sandoval today. She is diuresing well with lasix and edema in legs is much improved. Waiting to see if pt can go to inpt rehab.
[2018-06-25] MEDS: Ibuprofen 800 MG TAB PO PRN ×2 (08:53→18:02)
[2018-06-25] MEDS: metFORMIN 500 MG TAB PO SCH ×2 (08:54→18:02)
[2018-06-25] MEDS: Potassium Chloride 10 MEQ TAB PO SCH (08:54)
[2018-06-25] MEDS: Furosemide 40 MG/4 ML VIAL SLOW IVP SCH (08:54)
[2018-06-25] MEDS: Ferrous Sulfate 325 MG TAB PO SCH (08:54)
[2018-06-25] MEDS: Enoxaparin Sodium 40 MG/0.4 ML SYRINGE SC SCH (08:54)
[2018-06-26] MEDS: Acetaminophen 325 MG TAB PO PRN ×4 (00:32→22:36)
[2018-06-26 05:35] LABS: #Basophils 0.1 thou/uL (0.0-0.2); #Eosinphils 0.2 thou/uL (0.0-0.7); #Lymphocytes 1.6 thou/uL (1.20-3.40); #Monocytes 1.1 thou/uL (0.11-0.59); #Neutrophils 9.7 thou/uL (1.40-6.50); %Basophils 0.5 % (0.0-1.0); %Eosinophils 1.9 % (0.0-10.0); %Lymphocytes 12.8 % (21.0-51.0); %Monocytes 8.9 % (0.0-10.0); %Neutrophils 75.8 % (42.0-75.0); Hemoglobin 7.8 g/dL (12.0-16.0); Mean Corpuscular HGB CONC 30.7 g/dL (32.0-36.0); Mean Corpuscular Hemoglobin 25.7 pg (27.0-31.0); Mean Corpuscular Volume 83.6 fL (78.0-98.0); Mean Platelet Volume 6.9 fL (7.4-10.4); Platelet Count 685 thou/uL (130-400); RBC Distribution Width 15.9 % (11.5-14.5); Red Blood Cell (RBC) Count 3.02 mill/uL (4.20-5.40); White Blood Cell (WBC) Count 12.8 thou/uL (4.8-10.8)
[2018-06-26 05:46] LABS: ALT (SGPT) 14 U/L (8-55); AST (SGOT) 11 U/L (5-34); Albumin 2.2 g/dL (3.4-4.8); Alkaline Phosphatase 138 U/L (40-150); Anion Gap 11 mmol/L (10-20); BUN (Urea Nitrogen) 20 mg/dL (9.8-20.1); Bilirubin, Total 0.2 mg/dL (0.2-1.2); Calc. Creatinine Clearance 93 mL/min (70-130); Calcium 8.3 mg/dL (7.8-10.44); Carbon Dioxide 29 mmol/L (23-31); Chloride 102 mmol/L (98-107); Estimated GFR-MDRD Greater than 90; Globulin 2.5 g/dL (2.4-3.5); Glucose 182 mg/dL (83-110); Potassium 3.5 mmol/L (3.5-5.1); Protein, Total 4.7 g/dL (6.0-8.3); Sodium 138 mmol/L (136-145)
--- NOTE | 2018-06-26 05:56 | PDOC.FM ---
- Subjective Subjective: NAEO. Improved LE swelling. No other complaints at this time. - Objective MAR Reviewed: Yes Vital Signs & Weight: Vital Signs (12 hours) Temp Pulse Resp BP Pulse Ox 06/26/18 04:00 97.6 F 93 19 139/66 97 06/26/18 00:00 97.5 F L 88 19 165/73 H 95 06/25/18 20:00 98.5 F 96 19 146/70 H 96 Weight Admit Weight 82.917 kg Weight 74.707 kg I&O: 06/24/18 06/25/18 06/26/18 06:59 06:59 06:59 Intake Total 960 1260 1500 Output Total 2500 2201 2600 Balance -1540 -051 -1100 Result Diagrams: 06/26/18 04:42 06/26/18 04:42 Phys Exam - Physical Examination Constitutional: NAD HEENT: moist MMs, sclera anicteric Gastrointestinal: soft, non-tender Musculoskeletal: no edema Neurological: moves all 4 limbs Psychiatric: normal affect, A&O x 3 Dx/Plan (1) Bilateral lower extremity edema Code(s): R60.0 - LOCALIZED EDEMA Status: Resolved (2) CHF (congestive heart failure) Code(s): I50.9 - HEART FAILURE, UNSPECIFIED Status: Chronic Qualifiers: Heart failure type: diastolic Heart failure chronicity: acute on chronic Qualified Code(s): I50.33 - Acute on chronic diastolic (congestive) heart failure (3) Sarcoma Code(s): C49.9 - MALIGNANT NEOPLASM OF CONNECTIVE AND SOFT TISSUE, UNSP Status : Chronic (4) HTN (hypertension) Code(s): I10 - ESSENTIAL (PRIMARY) HYPERTENSION Status: Suspected (5) Hypokalemia Code(s): E87.6 - HYPOKALEMIA Status: Resolved - Plan Plan: 78YO female with untreated sarcoma of her left flank, DM2, uncompliance with medical care with acute on chronic diastolic CHF exacerbation Bilateral LE edema 2/2 diastolic CHF - Echo showed EF 55-60%, diastolic dysfunction - Fluid status much improved, UO 2.6L/24hr - Transition to po lasix - Continue strict I/Os, daily weights, low sodium diet. Does have home med of lasix daily. Normocytic anemia - s/p 2 units of PRBCs just over 1 week ago. Likely 2/2 transient acute blood loss from sarcoma open wound & chronic disease - H/H 7.8/; asx - Monitor on CBCs, continue iron supplementation. Miralax prn. Leukocytosis -17.5 -> 12.8 -Afebrile, workup for infectious etiology has been negative Possible HTN - Patient denies any h/o HTN; however. BPs have been fluctuating this admission , likely fluid overload component - BP 139/66 this am, will not start BP med DMII - Recently diagnosed, diet controlled. Continue home metformin - Takes bergamot for cholesterol, refuses statin after discussion - A1c 6.9 - mild SS Untreated sarcoma - Wound care on board - CM consulted to see if can assist in pt f/u at [facility] - will consult onc Hypokalemia, resolved - 3.7 on 06/25 Reactive thrombocytosis - Likely 2/2 malignancy - Monitor on CBC Physical deconditioning -Plan for in rehab approval PCP: [facility] Diet: HH/CC with low sodium & fluid restrictions DVT ppx: lovenox GI ppx: none Abx: none Dispo: Pending approval at inpt rehab, CM on board as xds Code status: Full Addendum - Attending - Attending Attestation Date/Time: 06/26/18 3125 I personally evaluated the patient and discussed the management with Dr. Batista I agree with the History, Examination, Assessment and Plan documented above with any addition or exceptions noted below.Patient previously received Gleevec for dermatofibrosarcoma will consult with Hem/Onc regard continued treatment options and concern with current tumor burden, has been seen by radiation oncologist as well , currently looking into referral to Rehab. Stressed compliance with RX patient reluctant to take IV lasix due to its effectiveness and diuresis counseled appropriateness and will to convert po diuretic she endorses understanding. Note H/H trending lower, thrombocytosis improved. Still have not received medical records from [facility] which need to be reviewed GLORIA sent.
[2018-06-26] MEDS: Potassium Chloride 10 MEQ TAB PO SCH (07:39)
[2018-06-26] MEDS: metFORMIN 500 MG TAB PO SCH ×2 (07:39→17:31)
[2018-06-26] MEDS: Ferrous Sulfate 325 MG TAB PO SCH (07:39)
[2018-06-26] MEDS: Furosemide 40 MG/4 ML VIAL SLOW IVP SCH (08:35)
[2018-06-26] MEDS: Enoxaparin Sodium 40 MG/0.4 ML SYRINGE SC SCH (08:35)
[2018-06-26] MEDS: Ibuprofen 800 MG TAB PO PRN (08:35)
--- NOTE | 2018-06-26 22:20 | CON ---
DATE OF CONSULTATION: REASON FOR CONSULT: Dermatofibrosarcoma protuberans. HISTORY OF PRESENT ILLNESS: The patient is a pleasant 78-year-old female, who was diagnosed with dermatofibroma protuberans high-grade sarcoma in December of 2017. She had this expanding mass on her back for approximately 3 to 4 years prior to biopsy. She saw Dr. Camarillo in December and was started on Gleevec oral chemotherapy. The patient took for approximately 5 days, had decreased urine output and stopped. She did not contact our office to inform us that she had stopped chemotherapy and was not seen until March when she returned for expanding mass on her left flank. She had seen Dr. Rois, who suggested she go to [facility] for possible resection. She declined Gleevec again in March. She presented with her daughter, who was unaware of the severity of mass and the extent of her cancer. She saw Dr. Corley in March as well, had some CT scans but did not return for follow-up. She was referred to [facility] and [facility] did not accept her insurance. She has not contacted [facility] for an appointment. Over the last several weeks, she has had bleeding from this sarcoma. She spent a week in the [facility] a few weeks ago for hemorrhage and infection, where she received IV antibiotics. She returns to this hospital for bilateral lower extremities swelling and weakness. We rest see the patient regarding her sarcoma. PAST MEDICAL HISTORY: 1. High-grade stage IV dermatofibrosarcoma protuberans. 2. Hypertension. 3. Diabetes mellitus type 2. PAST SURGICAL HISTORY: 1. Ovarian cyst removal. 2. Tonsillectomy. ALLERGIES: NO KNOWN DRUG ALLERGIES. HOME MEDICATIONS: 1. Lasix 20 mg daily. 2. Metformin 1000 mg b.i.d. 3. Potassium chloride 10 mEq daily. FAMILY HISTORY: Noncontributory. SOCIAL HISTORY: , has several children who do not live locally. No alcohol, tobacco, or illicit drug use. REVIEW OF SYSTEMS: A 10-point review of systems is negative except for pain in her left flank. PHYSICAL EXAMINATION: GENERAL: Well-developed, well-nourished female, in no acute distress. HEENT: Normocephalic, atraumatic. Pupils equal and reactive to light. NECK: Supple. CV: regular rate and rhythm. LUNGS: Clear. ABDOMEN: Soft, nontender. Bowel sounds are positive. EXTREMITIES: No clubbing, cyanosis, or edema. SKIN: She has a large, greater than 15 x 15 cm mass in her left flank. NEUROLOGICAL: Nonfocal. PSYCH: The patient is alert, oriented and appropriate. LABORATORY DATA: Pertinent labs and x-rays: Current WBCs are 12.8, hemoglobin 7.8, hematocrit 25.2, platelet count is 685,000, 76% neutrophils, 13% lymphocytes. Sodium is 138, potassium 3.5, chloride 102, CO2 is 29, BUN is 20, creatinine 0.61, lactic acid is 2, calcium is 8.3, total bilirubin is 0.2, AST is 11, ALT is 14, alkaline phosphatase is 138, serum total protein is 4.7, albumin is 2.2, globulin 2.5. Urine is negative for bacteria. CT angio was negative for pulmonary embolism. ASSESSMENT: 1. Stage IV high-grade dermatofibrosarcoma. 2. Noncompliance with followup. DISCUSSION: The patient has been referred to [facility] by Dr. Rios and Dr. Corley and ourselves, will resend her medical records to the [facility]. Hopefully, they will contact her and she will be able to get down there. She states that she has no ride and has no ability to go back and forth to downtown [place]. although her daughter does live in [place]. No surgical intervention available locally. She has refused chemotherapy again today. Will have Dr. Corley see the patient. We will continue wound care. We will have the palliative care team see the patient. Job ID: [id number] [facility]
[2018-06-27] MEDS: Ibuprofen 800 MG TAB PO PRN ×3 (03:07→19:43)
--- NOTE | 2018-06-27 05:48 | PDOC.FM ---
- Subjective Subjective: NAEO. Fluid improved per patient. - Objective MAR Reviewed: Yes Vital Signs & Weight: Vital Signs (12 hours) Temp Pulse Resp BP Pulse Ox 06/27/18 04:00 98.1 F 96 18 145/64 H 96 06/27/18 00:00 98.1 F 103 H 19 129/64 97 06/26/18 21:40 95 06/26/18 20:00 97.9 F 101 H 19 134/62 95 Weight Admit Weight 82.917 kg Weight 74.707 kg I&O: 06/25/18 06/26/18 06/27/18 06:59 06:59 06:59 Intake Total 1260 1500 1000 Output Total 2201 2600 750 Balance -941 -1100 250 Result Diagrams: 06/27/18 04:39 06/26/18 04:42 Phys Exam - Physical Examination Constitutional: NAD HEENT: PERRLA, moist MMs, sclera anicteric Respiratory: no wheezing, clear to auscultation bilateral Cardiovascular: RRR, no significant murmur Musculoskeletal: no edema sarcoma present at left flank Neurological: non-focal, moves all 4 limbs Psychiatric: normal affect, A&O x 3 Dx/Plan (1) Dermatofibrosarcoma Code(s): C44.99 - OTHER SPECIFIED MALIGNANT NEOPLASM OF SKIN, UNSPECIFIED Status: Chronic (2) CHF (congestive heart failure) Code(s): I50.9 - HEART FAILURE, UNSPECIFIED Status: Chronic Qualifiers: Heart failure type: diastolic Heart failure chronicity: acute on chronic Qualified Code(s): I50.33 - Acute on chronic diastolic (congestive) heart failure (3) Bilateral lower extremity edema Code(s): R60.0 - LOCALIZED EDEMA Status: Resolved (4) HTN (hypertension) Code(s): I10 - ESSENTIAL (PRIMARY) HYPERTENSION Status: Suspected (5) Hypokalemia Code(s): E87.6 - HYPOKALEMIA Status: Resolved - Plan Plan: 78YO female with untreated dermatofibrosarcoma of her left flank, DM2 , uncompliance with medical care with acute on chronic diastolic CHF exacerbation Bilateral LE edema 2/2 diastolic CHF - Echo showed EF 55-60%, diastolic dysfunction - clinically euvolemic - continue po lasix - Continue strict I/Os, daily weights, low sodium diet - emphasized importance of compliance Normocytic anemia - s/p 2 units of PRBCs just over 1 week ago. Likely 2/2 transient acute blood loss from sarcoma open wound & chronic disease - H/H 7.8; asx - Monitor on CBCs, continue iron supplementation. Miralax prn. Leukocytosis -17.5 -> 12.8 -Afebrile, workup for infectious etiology has been negative Possible HTN - BPs stable and within age appropriate range of <150/<90 - No antihypertensives at this time as was initial high BPs attributed to fluid overload DMII - Recently diagnosed, diet controlled. Continue home metformin - Takes bergamot for cholesterol, refuses statin after discussion - A1c 6.9 - mild SS Dermatofbirosarcoma of L flank - Wound care on board - Seen by onc, rx f/u with [facility] Hypokalemia, resolved - 3.7 on 06/25 Reactive thrombocytosis - Likely 2/2 malignancy - Monitor on CBC Physical deconditioning -Plan for inpt rehab, pending approval PCP: [facility] Diet: HH/CC with low sodium & fluid restrictions DVT ppx: lovenox GI ppx: none Abx: none Dispo: Pending approval at inpt rehab. Plan to f/u at [facility] for continued mgmt of dermatofibrosarcoma. Code status: Full Addendum - Attending - Attending Attestation Date/Time: 06/27/18 5932 I personally evaluated the patient and discussed the management with Dr. Batista I agree with the History, Examination, Assessment and Plan documented above with any addition or exceptions noted below.Patient still refusing diuretic tumor with bleeding this am will check H/H rec d/c to rehab and f/u [facility] for further sarcoma recommendations.Patient with significant denial of severity of illness. Family is aware of care plans.
[2018-06-27 05:49] LABS: #Eosinphils 0.1 thou/uL (0.0-0.7); #Lymphocytes 1.5 thou/uL (1.20-3.40); #Monocytes 1.3 thou/uL (0.11-0.59); #Neutrophils 14.7 thou/uL (1.40-6.50); %Basophils 0.1 % (0.0-1.0); %Eosinophils 0.8 % (0.0-10.0); %Lymphocytes 8.3 % (21.0-51.0); %Monocytes 7.2 % (0.0-10.0); %Neutrophils 83.6 % (42.0-75.0); Hemoglobin 7.7 g/dL (12.0-16.0); Mean Corpuscular HGB CONC 30.8 g/dL (32.0-36.0); Mean Corpuscular Hemoglobin 25.6 pg (27.0-31.0); Mean Corpuscular Volume 83.3 fL (78.0-98.0); Platelet Count 716 thou/uL (130-400); Red Blood Cell (RBC) Count 3.01 mill/uL (4.20-5.40); White Blood Cell (WBC) Count 17.6 thou/uL (4.8-10.8)
[2018-06-27] MEDS: Furosemide 20 MG TAB PO SCH (08:37)
[2018-06-27] MEDS: Enoxaparin Sodium 40 MG/0.4 ML SYRINGE SC SCH (08:38)
[2018-06-27] MEDS: Potassium Chloride 10 MEQ TAB PO SCH (08:39)
[2018-06-27] MEDS: metFORMIN 500 MG TAB PO SCH ×2 (08:39→16:14)
[2018-06-27] MEDS: Ferrous Sulfate 325 MG TAB PO SCH (08:39)
--- NOTE | 2018-06-27 15:45 | CON ---
DATE OF CONSULTATION: 06/27/2018 REASON FOR CONSULTATION: Ms. 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 I was asked to see her to discuss her options with radiation therapy. HISTORY OF PRESENT ILLNESS: Ms. Bowens is known to me. 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 She had a large mass on her left flank at that time. She was seen by Dr. Camarillo and started on Gleevec and took this for about a week, but had difficulties with urination and subsequently stopped the medication and never returned to see Dr. Camarillo. In March, I saw her along with Dr. Camarillo and the lesion had significantly increased in size. She had been seen by Dr. Rios, who did not feel that there was a surgeon here locally, who could perform a surgical resection of this and recommended that she be seen in either [place] or at [facility]. Her insurance did not allow to go to [place] and she never followed through with going to [facility]. She came to see me, did discuss her options with radiation therapy. At that time, she was having some leakage from the tumor and was performing dressing changes. Dr. Camarillo confirmed that the mass was significantly larger and it measured about 15 cm. I had recommended that we stage with the CT scans given that the tumor was behaving as a high grade sarcoma. These were performed and showed no evidence of metastatic disease. The patient was supposed to come and see me after her CT scans, but had a fall and subsequently canceled her appointment. She informed us she would call us back to reschedule, but never called us back to reschedule, again that was about 3 months ago. More recently, she was admitted to [facility] a couple of weeks ago because of the bleeding from the tumor mass. She did require transfusion. Several days ago, she was admitted here at [place] because of swelling in her legs and feet. She was felt to have new onset congestive heart failure. This responded well to diuresis. She still reports some leakage from the tumor bed, has not had any significant bleeding episodes like she had several weeks ago. The pain in the tumor mass is about the same. She denies any difficulties with her bowel movements with urination. She did have a CT angiogram, which continued to confirm no evidence of lung metastasis. Yesterday, she was seen by Cee Tapia, in Oncology. She has declined consideration of chemotherapy. I have been asked to see the patient to discuss her options with radiation therapy. She does report that she is eating without difficulty. PAST MEDICAL HISTORY: 1. Hypertension. 2. Diabetes. 3. New onset congestive heart failure. 4. Obesity. 5. Status post tonsillectomy. 6. Status post ovarian cyst removal. MEDIATIONS: 1. Lovenox. 2. Iron sulfate. 3. Lasix. 4. Motrin. 5. Glucophage. 6. Insulin p.r.n. 7. Zofran p.r.n. 8. MiraLax p.r.n. ALLERGIES: NO KNOWN MEDICAL ALLERGIES. SOCIAL HISTORY: She has no cigarette or alcohol use. 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 She does have a son, who lives here in [facility] as well as a daughter. Who live in [place] and another son, who lives in [place]. FAMILY HISTORY: Her mother at age 75 from complication from surgery. Her father at age 88 from prostate cancer. There is no other family history of malignancy. REVIEW OF SYSTEMS: A 12-system review of systems is otherwise negative. PHYSICAL EXAMINATION: VITAL SIGNS: Height 5 feet and weight 164 pounds, blood pressure is 128/61, pulse is 105, respirations are 18, temperature is 97.9, and O2 saturation is 97%. CONSTITUTIONAL: She is alert and oriented and in no apparent distress. She is well-developed and well-nourished. Karnofsky performance status is 60%. EYES: Pupils are equal, round, and reactive to light. Extraocular movements are intact. ENT: Oral cavity and oropharynx, normal without lesion or erythema. Palate elevates symmetrically. Gingiva is intact. NECK: Supple without cervical or supraclavicular adenopathy. No thyromegaly. Larynx is midline. LUNGS: Breathing nonlabored. Clear to auscultation and percussion. HEART: Regular rate and rhythm with a 2/6 systolic murmur. EXTREMITIES: No pedal edema today. BACK: In the left flank region, continues to have a large protruding mass that has a dressing over it. The mass is easily 15 or 20 cm. LYMPHATIC: No axillary or inguinal adenopathy. ABDOMEN: Bowel sounds present. Obese, soft, nontender, and nondistended without mass or hepatosplenomegaly. NEUROLOGIC: Cranial nerves 2 through 12 are grossly intact. Motor strength is 5/5 in both upper and lower extremities in all muscle groups tested. Her gait was not tested. RADIOLOGIC DATA: CT angiogram from admission was personally reviewed and showed no evidence of lung metastasis. I also reviewed her CT of the chest, abdomen, and pelvis from 03/24/2018, which showed the large mass in the left flank, but no evidence of distal metastatic disease. LABORATORY DATA: Pathology showed a fibrosarcomatous (high grade) variant of dermatofibrosarcoma protuberans. CBC revealed a white blood cell count of 17, 600, but hemoglobin of 7.7, hematocrit of 25.1, and platelet count of 716,000. Chemistry grew showed glucose of 182, serum total protein was 4.7 with an albumin of 2.2. Electrolytes were otherwise normal. ASSESSMENT: Ms. 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 This is certainly behaving as a high grade sarcoma. She has been noncompliant in the past including not keeping her followup appointments with me as we tried to develop a treatment plan and she is also not gone to [facility] despite being referred in the past. She has multiple comorbidities including hypertension and diabetes and now a new onset congestive heart failure, which has responded to Lasix. PLAN: Ms. Bowens is difficult from several aspects. One is her noncompliance. The other aspect is that she has a very difficult disease. This is certainly behaving as a high grade sarcoma. When i saw her in March, I had recommended that we stage her to make sure that she did not have metastatic disease at that time. I talked to her about whether she wanted to ever see a sarcoma surgeon and attempt surgical salesperson men's hats of this or rather, we would want to consider some type of neoadjuvant therapy such as chemotherapy or radiation prior to surgery. I was not sure this was surgically resectable, but explained that needed this, sarcoma surgeon to see her to help with that delineation. I also explained that I needed a sarcoma surgeon to help with a multidisciplinary treatment plan. She did see Cee Tapia yesterday and is continuing to decline any consideration at chemotherapy. Again , explained to her the importance of a going [facility] to see sarcoma surgeon. I am not sure this is resectable and I figure that therefore, any surgery would be attmepted to anyway they would want to do some neoadjuvant radiation therapy at least, but I explained the importance of seeing a surgeon to help us with a multidisciplinary plan. However, I will do my radiation and how much radiation now I have gave with the pin on the surgeons input. This is what I had explained to her in March and I had also discussed with her daughter. Despite that, she never went to see a surgeon and did not follow up with me either. Now, she has more symptomatic with a significant bleed from her tumor several weeks ago. Her behavior with her noncompliance suggest that she is not that interested in treatment, but in discussing with her she seems to be very enthusiastic about wanting to get treatment, therefore, I again recommended to her that she see a sarcoma surgeon at [facility] to followup possible would help us with this treatment plan. I explained that we could do neoadjuvant radiation therapy here or even definitive radiation therapy if she was never felt to be surgically resectable. However, radiation by itself was unlikely to control her disease. Radiation given as sole treatment would be for palliation of her symptoms especially, especially the bleeding. I did ask her given her social situation that she lives by herself, whether she would be able to come on an outpatient basis for daily treatments and she thinks that she would be able to arrange transportation through her son. She does want to talk to her family about that. Again, I do seemed to have some difficulty convincing her of the importance of seeing a surgeon at [facility]. Logistics of radiation as well as the benefits and risks of treatment were discussed. Side effects would include, but not be limited to skin reaction, fatigue, lower blood counts, and risk of damage to her kidneys or chest wall or soft tissues and risk of damage to her kidneys are chest wall or soft tissues or intestines or other structures would receive radiation therapy. Again, she acts as if she wants to proceed with radiation therapy, but I am not sure if I have convinced her of the importance of seeing a surgeon also. I do hope to talk with her family about her treatment plan. If we are going to do the radiation, we would like to try to get that going sooner rather than later. Hopefully, she will go see the surgeon at [facility] in the weekend, confirmed the treatment plan and move forward towards treatment. I understand that Cee Tapia/Dr. Sarabia's office has again referred her to [facility]. I would be happy to see her again as an outpatient. Her visit with me will be pending her seeing the surgeon at [facility] if possible. If she refuses, then after that. Again, hopefully that can discuss this with her family. Thank you for this interesting consultation. Job ID: [id number]
[2018-06-27] MEDS ORDERED: Furosemide 40 MG/4 ML VIAL SLOW IVP SCH ×2 (18:00)
[2018-06-27] MEDS: Acetaminophen 325 MG TAB PO PRN (21:28)
--- NOTE | 2018-06-28 05:35 | PDOC.FM ---
Addendum entered and electronically signed by Maria A Batista MD 06/28/18 08:55 : DM2: -will add lisinopril to also help with BP Original Note: - Subjective Subjective: Received PRBC x2 with lasix yesterday. Reports feeling more energized. Denies SOB, leg swelling. - Objective MAR Reviewed: Yes Vital Signs & Weight: Vital Signs (12 hours) Temp Pulse Pulse Resp BP BP BP 06/28/18 04:00 97.9 F 89 18 137/64 06/28/18 00:00 98.5 F 94 19 146/69 H 06/27/18 20:00 98.3 F 97 19 135/68 06/27/18 19:07 99.0 F 97 16 137/60 06/27/18 18:52 98.9 F 99 16 140/64 Pulse Ox 06/28/18 04:00 97 06/28/18 00:00 96 06/27/18 20:00 96 06/27/18 19:07 06/27/18 18:52 Weight Admit Weight 82.917 kg Weight 72.121 kg I&O: 06/26/18 06/27/18 06/28/18 06:59 06:59 06:59 Intake Total 1500 1120 2220 Output Total 2600 1300 600 Balance -1100 -180 1620 Result Diagrams: 06/28/18 05:32 06/26/18 04:42 Phys Exam - Physical Examination Constitutional: NAD HEENT: moist MMs, sclera anicteric Respiratory: no wheezing, clear to auscultation bilateral Musculoskeletal: no edema, pulses present bandaged large mass on L flank Neurological: non-focal, moves all 4 limbs Psychiatric: normal affect, A&O x 3 Dx/Plan (1) Anemia due to blood loss, acute Code(s): D62 - ACUTE POSTHEMORRHAGIC ANEMIA Status: Acute (2) Dermatofibrosarcoma Code(s): C44.99 - OTHER SPECIFIED MALIGNANT NEOPLASM OF SKIN, UNSPECIFIED Status: Chronic (3) CHF (congestive heart failure) Code(s): I50.9 - HEART FAILURE, UNSPECIFIED Status: Chronic Qualifiers: Heart failure type: diastolic Heart failure chronicity: acute on chronic Qualified Code(s): I50.33 - Acute on chronic diastolic (congestive) heart failure (4) Bilateral lower extremity edema Code(s): R60.0 - LOCALIZED EDEMA Status: Resolved (5) HTN (hypertension) Code(s): I10 - ESSENTIAL (PRIMARY) HYPERTENSION Status: Suspected (6) Hypokalemia Code(s): E87.6 - HYPOKALEMIA Status: Resolved (7) DMII (diabetes mellitus, type 2) Status: Chronic - Plan Plan: 78YO female with untreated dermatofibrosarcoma of her left flank, DM2 , with acute on chronic diastolic CHF exacerbation Anemia 2/2 acute blood loss from tumor - s/p 2 PRBC, Hb 9 - stable otherwise Chronic diastolic heart failure - Echo this admission showed EF 55-60%, diastolic dysfunction - clinically euvolemic, stable - continue daily maintenance po lasix - Continue strict I/Os, daily weights, low sodium diet - emphasized importance of medication and diet compliance despite pt refusing daily maintenance lasix, pt understands consequences of not taking lasix DMII - Takes bergamot for cholesterol, refuses statin after discussion - A1c 6.9 - POC in 100s-200s - continue home metformin Possible HTN - BPs stable and within age appropriate range of <150/<90 - No antihypertensives at this time as was initial high BPs attributed to fluid overload Dermatofbirosarcoma of L flank - Wound care on board - Seen by onc, rx f/u with MD Thompson Hypokalemia, resolved - 3.7 on 06/25 Reactive thrombocytosis - Likely 2/2 malignancy - Monitor on CBC Physical deconditioning -Plan for inpt rehab, pending approval PCP: Johnny Diet: HH/CC with low sodium & fluid restrictions DVT ppx: lovenox GI ppx: none Abx: none Dispo: Pending approval at [facility]. Plan to f/u with Onc outpt and MD Thompson for multidisciplinary continued mgmt of dermatofibrosarcoma. Code status: DNR (discussed with pt & with palliative) Addendum - Attending - Attending Attestation Date/Time: 06/28/18 5982 I personally evaluated the patient and discussed the management with Dr. Batista I agree with the History, Examination, Assessment and Plan documented above with any addition or exceptions noted below. Patient refusing diuretic discussion indication. Spoke with Family regard importance of Referral to Sarcoma clinic at [facility] Daughter relayed had not called yet due to questions. Addressed her question and she agreed to call now and f/u with Daughter.
[2018-06-28 06:09] LABS: Hemoglobin 9.1 g/dL (12.0-16.0)
[2018-06-28] MEDS: Ibuprofen 800 MG TAB PO PRN ×2 (08:20→17:13)
[2018-06-28] MEDS: Ferrous Sulfate 325 MG TAB PO SCH (08:20)
[2018-06-28] MEDS: metFORMIN 500 MG TAB PO SCH ×2 (08:21→17:13)
[2018-06-28] MEDS: Enoxaparin Sodium 40 MG/0.4 ML SYRINGE SC SCH (08:21)
[2018-06-28] MEDS: Potassium Chloride 10 MEQ TAB PO SCH (08:21)
[2018-06-28] MEDS: Furosemide 20 MG TAB PO SCH (08:29)
--- NOTE | 2018-06-28 09:04 | CON ---
DATE OF CONSULTATION: ADDENDUM: I did just speak with Bernadette, Ms. Bowens's daughter by telephone. We did discuss her situation regarding her sarcoma involving her back. I explained to Bernadette the importance of having her see a sarcoma surgeon as part of the multidisciplinary management before, so we can formulate the correct treatment plan. I did explain that she is potentially a candidate for radiation but if we just do radiation alone that treatment would only be palliative in nature. If we did radiation, the hope would be to do it neoadjuvantly and shrink the tumor prior to this being surgically resected. This is the reason for seeing the surgeon ahead of time before we commit to any treatment. Her daughter does confirm the noncompliance of Ms. Bowens. The family has been trying for several months to get her to go see the surgeon at [facility], but she has steadfastly refused up until now. However, the daughter confirms that for the first time, Ms. Bowens had reached out to her and told her she was willing to go see the surgeon at [facility] and asked her daughter to get the appointment. So optimistically, we hope that she will follow through with that appointment. I explained to the daughter that if the patient refuses to go to [facility], then we could consider radiation therapy but likely radiation will just be palliation. Nevertheless, given her recent bleeding, this could be significant in terms of quality of life. However, her daughter is not sure that Ms. Bowens would be able to come daily for treatment like radiation requires. She explains that her brother, who is here in town may or may not be able to bring her and that Ms. Bowens would have to work that out with her son to see if that is even possible. They are going to be keep me updated regarding this process and I offered to see Ms. Bowens at any point as an outpatient to consider receiving the treatment either neoadjuvantly or palliatively. Job ID: [id number]
[2018-06-28] MEDS: Lisinopril 2.5 MG TAB PO SCH (09:34)
[2018-06-28 13:14] VITALS: BMI 31.0
[2018-06-28] MEDS: Acetaminophen 325 MG TAB PO PRN ×2 (13:14→22:14)
[2018-06-29] MEDS: Melatonin 3 MG TAB PO PRN (01:37)
[2018-06-29] MEDS: Ibuprofen 800 MG TAB PO PRN ×3 (01:44→16:10)
--- NOTE | 2018-06-29 06:26 | PDOC.FM ---
Addendum entered and electronically signed by Maria A Batista MD 06/29/18 09:34 : Anemia: FOBT positive with dec in Hb to 7, will consult GI SVT: asx, howevere seonc episode so will consult cards Original Note: - Subjective Subjective: NAEO. Patient has no complaints, still refusing lasix. 12 beats of SVT last night. Denies any palpitations, syncopal episodes. No prior hx of this - Objective MAR Reviewed: Yes Vital Signs & Weight: Vital Signs (12 hours) Temp Pulse Resp BP BP Pulse Ox 06/29/18 04:00 98.3 F 86 22 H 123/58 L 98 06/29/18 00:00 97.5 F L 96 14 159/69 H 96 06/28/18 20:00 98 F 97 16 158/66 H 96 Weight Admit Weight 82.917 kg Weight 72.121 kg I&O: 06/27/18 06/28/18 06/29/18 06:59 06:59 06:59 Intake Total 1120 3160 1000 Output Total 1300 600 Balance -180 2560 1000 Result Diagrams: 06/29/18 08:22 06/29/18 08:22 Phys Exam - Physical Examination Constitutional: NAD HEENT: moist MMs, sclera anicteric conjunctival pallor Neck: no JVD, full ROM Gastrointestinal: soft, non-tender Musculoskeletal: no edema Neurological: non-focal, moves all 4 limbs Psychiatric: normal affect, A&O x 3 Dx/Plan (1) Anemia due to blood loss, acute Code(s): D62 - ACUTE POSTHEMORRHAGIC ANEMIA Status: Acute (2) Dermatofibrosarcoma Code(s): C44.99 - OTHER SPECIFIED MALIGNANT NEOPLASM OF SKIN, UNSPECIFIED Status: Chronic (3) CHF (congestive heart failure) Code(s): I50.9 - HEART FAILURE, UNSPECIFIED Status: Chronic Qualifiers: Heart failure type: diastolic Heart failure chronicity: acute on chronic Qualified Code(s): I50.33 - Acute on chronic diastolic (congestive) heart failure (4) Bilateral lower extremity edema Code(s): R60.0 - LOCALIZED EDEMA Status: Resolved (5) HTN (hypertension) Code(s): I10 - ESSENTIAL (PRIMARY) HYPERTENSION Status: Suspected (6) Hypokalemia Code(s): E87.6 - HYPOKALEMIA Status: Resolved (7) DMII (diabetes mellitus, type 2) Status: Chronic - Plan Plan: 78YO female with untreated dermatofibrosarcoma of her left flank, DM2 , with acute on chronic diastolic CHF exacerbation Anemia 2/2 acute blood loss from tumor - s/p 2 PRBC, Hb 9 - stable otherwise -will recheck H/H Chronic diastolic heart failure - Echo this admission showed EF 55-60%, diastolic dysfunction - clinically euvolemic, stable - continue daily maintenance po lasix - Continue strict I/Os, daily weights, low sodium diet - emphasized importance of medication and diet compliance despite pt refusing daily maintenance lasix, pt understands consequences of not taking lasix DMII - Takes bergamot for cholesterol, refuses statin after discussion - A1c 6.9 - POC in 100s-200s - continue home metformin Possible HTN - BPs stable and within age appropriate range of <150/<90 - Will start on lisinopril also for DM2 - Check BMP today Dermatofbirosarcoma of L flank - Wound care on board - Seen by onc, rx f/u with MD Thompson after speaking with daughter Hypokalemia, resolved - 3.7 on 06/25 Reactive thrombocytosis - Likely 2/2 malignancy - Monitor on CBC Physical deconditioning -Plan for inpt rehab, pending approval PCP: Johnny Diet: HH/CC with low sodium & fluid restrictions DVT ppx: lovenox GI ppx: none Abx: none Dispo: Approval for [facility]. Plan to f/u with Onc outpt and MD Thompson for multidisciplinary continued mgmt of dermatofibrosarcoma. Pending H/H and FOBT. Code status: DNR (discussed with pt & with palliative) Addendum - Attending - Attending Attestation Date/Time: 06/29/18 9480 I personally evaluated the patient and discussed the management with Dr. Batista I agree with the History, Examination, Assessment and Plan documented above with any addition or exceptions noted below.Patient with GI blood loss consufor GI for further evaluation
[2018-06-29 09:05] LABS: Hemoglobin 7.8 g/dL (12.0-16.0)
[2018-06-29 09:18] LABS: Anion Gap 14 mmol/L (10-20); BUN (Urea Nitrogen) 16 mg/dL (9.8-20.1); Calc. Creatinine Clearance 100 mL/min (70-130); Calcium 8.8 mg/dL (7.8-10.44); Carbon Dioxide 25 mmol/L (23-31); Chloride 101 mmol/L (98-107); Estimated GFR-MDRD Greater than 90; Glucose 138 mg/dL (83-110); Potassium 3.5 mmol/L (3.5-5.1); Sodium 136 mmol/L (136-145)
[2018-06-29] MEDS: Furosemide 20 MG TAB PO SCH (09:21)
[2018-06-29] MEDS: Enoxaparin Sodium 40 MG/0.4 ML SYRINGE SC SCH (09:21)
[2018-06-29] MEDS: Lisinopril 2.5 MG TAB PO SCH (09:22)
[2018-06-29] MEDS: Ferrous Sulfate 325 MG TAB PO SCH (09:29)
[2018-06-29] MEDS: metFORMIN 500 MG TAB PO SCH ×2 (09:29→19:33)
[2018-06-29] MEDS: Potassium Chloride 10 MEQ TAB PO SCH (09:37)
[2018-06-29] MEDS: Acetaminophen 325 MG TAB PO PRN ×2 (12:09→19:33)
[2018-06-29] MEDS ORDERED: Cyclobenzaprine 10 MG TAB PO PRN (12:24)
[2018-06-29] MEDS ORDERED: Magnesium 2 GM/50 ML 2 GM in Premix Bag 1 BAG IVPB SCH (13:30)
--- NOTE | 2018-06-29 18:52 | CON ---
DATE OF CONSULTATION: 06/29/2018 REASON FOR CONSULTATION: Nonsustained supraventricular tachycardia. HISTORY OF PRESENT ILLNESS: Ms. Bowens is a very pleasant 78-year-old white female, who comes to the hospital for lower extremity swelling. She was recently admitted to the [facility] and she was treated for bleeding in her large sarcoma that she has on her left buttocks area. She was given blood transfusions and antibiotic as it was thought that it could be infected. She is difficult in the sense that she has not followed up with her oncologist, Dr. Corley or has gone to see MD Thompson, where she has been referred several times. She has been on Gleevec in the past, but she became anuric that she stopped taking it and her aneuria resolved apparently. She has been in the hospital and treated for what appears to be diastolic heart failure responsive to IV Lasix and was doing just fine. She developed nonsustained SVT on telemetry, so Cardiology is being consulted. PAST MEDICAL HISTORY: 1. Type 2 diabetes. 2. High-grade fibrosarcomatous variant of dermatofibrosarcoma protuberans. 3. Hypertension. 4. Diastolic heart failure. 5. Obesity. SURGICAL HISTORY: 1. Tonsillectomy. 2. Ovarian cyst removal. OUTPATIENT MEDICATIONS: Include; 1. Lasix a day. 2. Potassium chloride. 3. Metformin b.i.d. ALLERGIES: NO KNOWN DRUG ALLERGIES. SOCIAL HISTORY: No alcohol, tobacco, or drug use. 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 FAMILY HISTORY: No early coronary artery disease. REVIEW OF SYSTEMS: A 12-point review of systems was done, and it was all negative unless stated in the history of present illness. She also reports a lot of pain around her sarcoma, which does not let her sleep. PHYSICAL EXAMINATION: VITAL SIGNS: Temperature 97.7, pulse 85, respiratory rate 18, saturation 98% on room air, blood pressure 139/63. GENERAL: Awake, alert, and oriented x3. No distress. HEENT: Normocephalic and atraumatic. NECK: Supple. LUNGS: Clear. CARDIOVASCULAR: S1, S2. No S3 or S4. No murmurs. ABDOMEN: Soft. Positive bowel sounds. EXTREMITIES: 1+ edema. Large sarcoma protuberans on her left lower back above her left buttocks area. EKG was reviewed. Telemetry was reviewed. ASSESSMENT AND PLAN: 1. Nonsustained supraventricular tachycardia. 2. Sarcoma. 3. Noncompliance. PLAN: From the SVT standpoint, she has nonsustained VT. This is not a big worry. She is completely asymptomatic from it. We will start on a very low-dose beta eulalia. We would actually stop the JESSICA inhibitor and up titrate the beta eulalia as much as we can. No other interventions at this time. Her LV function is normal. She has grade 1 diastolic dysfunction. Thank you for letting me to participate in the care of your patient. We will sign off. Please call with any questions. Plan on seeing her in 1 month in the office. Job ID: [id number]
--- NOTE | 2018-06-29 20:34 | CON ---
DATE OF CONSULTATION: 06/29/2018 REASON FOR CONSULTATION: Anemia and heme-positive stool. HISTORY: Mrs. 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 She was recently admitted to [facility] two weeks ago for bleeding from the sarcoma tumor, requiring 2 units of transfusion. Since admission to [facility] four days ago, her hemoglobin has dropped down to 7 g/dL from 8.2, requiring 2 units of RBC transfusion. Clinically, she has not noted any overt bleeding such as melena or hematochezia. She does have frequent loose stool from oral iron supplement that cause irritation of her hemorrhoids with periodic hemorrhoidal bleeding. She has had extensive GI evaluation in the fall of 2015 when she was admitted to [facility] with severe iron deficiency anemia with hemoglobin of 3.6 and ferritin of 5. She underwent EGD and colonoscopy at that time, that showed only erosive esophagitis from a hiatal hernia and a small polyp. She subsequently underwent an outpatient small-bowel capsule evaluation that was normal. Since that time, she was only taking iron supplement. Otherwise, currently she feels fine without any nausea, vomiting, abdominal pain. Bowel function has not changed other than frequent at times loose stool from her oral iron supplement. PAST MEDICAL HISTORY: 1. Sarcoma as above. 2. Adult onset diabetes. 3. Chronic iron deficiency anemia. 4. Hypertension. 5. Status post tonsillectomy. 6. Status post ovarian cyst surgery. 7. EGD/colonoscopy/small-bowel capsule evaluation in 02/2016. ALLERGIES: NONE. HOME MEDICATIONS: Include metformin, Lasix, and potassium chloride. SOCIAL HISTORY: The patient has no active tobacco or alcohol usage. FAMILY HISTORY: Negative for any known GI problem, liver disease or GI malignancy. REVIEW OF SYSTEMS: 10-point review of systems did not show any other pertinent positives or negatives other than what was mentioned in the HPI. PHYSICAL EXAMINATION: VITAL SIGNS: Temperature is 98.3, blood pressure 140/65, pulse of 91. GENERAL: She is alert, conversant, in no distress. HEENT: Shows anicteric sclerae. Oropharynx clear. NECK: Supple. CV: Shows normal S1, S2. Regular rate and rhythm. CHEST: Shows breath sounds. ABDOMEN: Soft, mildly protuberant, but no distention. No tympany. She has active bowel sounds. No organomegaly. EXTREMITIES: Show no edema. LABORATORY DATA: WBC 17.6, hemoglobin currently of 7.8, hematocrit 24.1, platelet count of 716. She had 2 units of RBC transfusion. Admission hemoglobin 4 days ago was 8.2. Electrolytes within normal range. Creatinine 0.55. ASSESSMENT: Recurrent anemia with heme-positive stools. The patient has had extensive GI evaluation including upper endoscopy, colonoscopy, and small-bowel capsule evaluation in February 2016, that did not show any significant process other than erosive esophagitis. At that time, she was admitted to the [facility] with a hemoglobin of 3.6. Her current finding of heme-positive stool is likely nonspecific and could be a false positive from oral intake or hemorrhoidal irritation, which she has seen a periodic bright red rectal bleeding. Given her GI tract evaluation in 2015, her heme-positive stool unlikely represents any aggressive GI tract process. Certainly, there is no overt bleeding such as melena or hematochezia. RECOMMENDATION: 1. At this point, no repeat endoscopic evaluation is warranted as there is no overt bleeding. The patient declines any endoscopic evaluation any way. 2. Supportive care in trending her blood count, transfuse if needed. 3. If there are any signs of overt bleeding or clinically significant bleeding, we will rediscuss utility of EGD and colonoscopy at that time. Job ID: [id number]
[2018-06-30] MEDS: Ibuprofen 800 MG TAB PO PRN (01:03)
--- NOTE | 2018-06-30 05:48 | PDOC.FM ---
- Subjective Subjective: NAEO. Denies melena more than normal (usually stool is dark tinted from home iron), no palpitations, no leg swelling - Objective MAR Reviewed: Yes Vital Signs & Weight: Vital Signs (12 hours) Temp Pulse Resp BP Pulse Ox 06/30/18 03:39 97.8 F 88 20 122/58 L 93 L 06/30/18 00:00 97.6 F 85 18 122/58 L 96 06/29/18 20:15 98 06/29/18 20:00 98.4 F 82 18 137/65 98 Weight Admit Weight 82.917 kg Weight 72.756 kg I&O: 06/28/18 06/29/18 06/30/18 06:59 06:59 06:59 Intake Total 3160 1480 810 Output Total 600 Balance 2560 1480 810 Result Diagrams: 06/30/18 05:57 06/30/18 05:57 Phys Exam - Physical Examination Constitutional: NAD HEENT: PERRLA, sclera anicteric Neck: no JVD, full ROM Cardiovascular: RRR, no significant murmur Gastrointestinal: soft, non-tender Musculoskeletal: no edema Neurological: non-focal, moves all 4 limbs Dx/Plan (1) Anemia due to blood loss, acute Code(s): D62 - ACUTE POSTHEMORRHAGIC ANEMIA Status: Acute (2) Nonsustained supraventricular tachycardia Code(s): I47.1 - SUPRAVENTRICULAR TACHYCARDIA Status: Acute (3) Dermatofibrosarcoma Code(s): C44.99 - OTHER SPECIFIED MALIGNANT NEOPLASM OF SKIN, UNSPECIFIED Status: Chronic (4) CHF (congestive heart failure) Code(s): I50.9 - HEART FAILURE, UNSPECIFIED Status: Chronic Qualifiers: Heart failure type: diastolic Heart failure chronicity: acute on chronic Qualified Code(s): I50.33 - Acute on chronic diastolic (congestive) heart failure (5) Bilateral lower extremity edema Code(s): R60.0 - LOCALIZED EDEMA Status: Resolved (6) HTN (hypertension) Code(s): I10 - ESSENTIAL (PRIMARY) HYPERTENSION Status: Suspected (7) Hypokalemia Code(s): E87.6 - HYPOKALEMIA Status: Resolved (8) DMII (diabetes mellitus, type 2) Status: Chronic - Plan Plan: 78YO female with untreated dermatofibrosarcoma of her left flank, DM2 , with acute on chronic diastolic CHF exacerbation Anemia 2/2 acute blood loss - tumor vs. GI tract - s/p 2 PRBC, Hb 9 - GI consulted, no further management at this time - Clinically monitor for active signs of bleeding - Trend H/H Nonsustained SVT -asymptomatic episodes -coreg started, lisinopril d/c -cards rx outpt f/u Hypomagnesemia -1.4 on 06/29, replaced -AM recheck Chronic diastolic heart failure - Echo this admission showed EF 55-60%, diastolic dysfunction - clinically euvolemic, stable - continue daily maintenance po lasix PRN - Continue strict I/Os, daily weights, low sodium diet - emphasized importance of medication and diet compliance despite pt refusing daily maintenance lasix, pt understands consequences of not taking lasix DMII - Takes bergamot for cholesterol, refuses statin after discussion - A1c 6.9 - POC in 100s-200s - continue home metformin Possible HTN - BPs stable and within age appropriate range of <150/<90 - No antihypertensives at this time Dermatofbirosarcoma of L flank - Wound care on board - Seen by onc, rx f/u with MD Thompson after speaking with daughter Hypokalemia, resolved - 3.7 on 06/25 Reactive thrombocytosis - Likely 2/2 malignancy - Monitor on CBC Physical deconditioning -Plan for inpt rehab, pending approval PCP: Johnny Diet: HH/CC with low sodium & fluid restrictions DVT ppx: held due to concern for active bleeding from sarcoma. discussed with pt who understands conferred risks of no anticoagulation with hypercoagulable state. she expressed understanding. GI ppx: none Abx: none Dispo: Pending insurance approval at [facility]. Plan to f/u with Onc outpt and MD Thompson for multidisciplinary continued mgmt of dermatofibrosarcoma. F/u cards outpt for nonsustained SVT. Replaced mag Code status: DNR (discussed with pt & with palliative) Addendum - Attending - Attending Attestation Date/Time: 06/30/18 [id number] I personally evaluated the patient and discussed the management with Dr. Batista I agree with the History, Examination, Assessment and Plan documented above with any addition or exceptions noted below.Patient for dismissal to rehab will f/u at the [facility] Sarcoma clinic .
[2018-06-30 06:35] LABS: #Eosinphils 0.1 thou/uL (0.0-0.7); #Lymphocytes 1.4 thou/uL (1.20-3.40); #Monocytes 1.3 thou/uL (0.11-0.59); #Neutrophils 10.3 thou/uL (1.40-6.50); %Basophils 0.3 % (0.0-1.0); %Lymphocytes 10.3 % (21.0-51.0); %Monocytes 9.8 % (0.0-10.0); %Neutrophils 78.5 % (42.0-75.0); Hemoglobin 7.9 g/dL (12.0-16.0); Mean Corpuscular HGB CONC 31.1 g/dL (32.0-36.0); Mean Corpuscular Hemoglobin 26.3 pg (27.0-31.0); Mean Corpuscular Volume 84.7 fL (78.0-98.0); Mean Platelet Volume 7.1 fL (7.4-10.4); Platelet Count 573 thou/uL (130-400); RBC Distribution Width 16.1 % (11.5-14.5); Red Blood Cell (RBC) Count 3.01 mill/uL (4.20-5.40); White Blood Cell (WBC) Count 13.1 thou/uL (4.8-10.8)
[2018-06-30 06:43] LABS: Hemoglobin 7.9 g/dL (12.0-16.0); Mean Corpuscular HGB CONC 30.9 g/dL (32.0-36.0); Mean Corpuscular Hemoglobin 26.1 pg (27.0-31.0); Mean Corpuscular Volume 84.6 fL (78.0-98.0); Mean Platelet Volume 7.2 fL (7.4-10.4); Platelet Count 573 thou/uL (130-400); RBC Distribution Width 15.9 % (11.5-14.5); White Blood Cell (WBC) Count 13.4 thou/uL (4.8-10.8)
[2018-06-30 06:53] LABS: Anion Gap 13 mmol/L (10-20); BUN (Urea Nitrogen) 14 mg/dL (9.8-20.1); Calc. Creatinine Clearance 92 mL/min (70-130); Calcium 8.9 mg/dL (7.8-10.44); Carbon Dioxide 26 mmol/L (23-31); Chloride 103 mmol/L (98-107); Estimated GFR-MDRD Greater than 90; Glucose 158 mg/dL (83-110); Magnesium 1.7 mg/dL (1.6-2.6); Potassium 4.1 mmol/L (3.5-5.1); Sodium 138 mmol/L (136-145)
[2018-06-30] MEDS ORDERED: Magnesium Oxide 400 MG TAB PO SCH (09:00)
[2018-06-30] MEDS: Acetaminophen 325 MG TAB PO PRN ×2 (10:06→17:15)
[2018-06-30] MEDS: Carvedilol 3.125 MG TAB PO SCH ×2 (10:07→17:15)
[2018-06-30] MEDS: metFORMIN 500 MG TAB PO SCH ×2 (10:07→17:15)
[2018-06-30] MEDS: Furosemide 20 MG TAB PO SCH (10:07)
[2018-06-30] MEDS: Ferrous Sulfate 325 MG TAB PO SCH (10:08)
[2018-06-30 10:37] LABS: Iron 11 ug/dL (50-170); Iron Binding Capacity, Total 146 mcg/dL (265-497)
--- NOTE | 2018-06-30 11:38 | PRG ---
DATE OF SERVICE: 06/30/2018 SUBJECTIVE: The patient feels fine without complaints this morning. She continues to eat well without any nausea, vomiting, or abdominal pain. She reports some leakage/seepage from her sarcoma in the back. PHYSICAL EXAMINATION: VITAL SIGNS: Temperature is 98.6, blood pressure 150/65, pulse of 87. She is alert, conversant, in no distress. HEAD: Anicteric sclerae. CV: Normal S1, S2. Regular rate and rhythm. CHEST: Exam shows a breath sounds. ABDOMEN: Soft, nontender, good bowel sounds. EXTREMITIES: No edema. LABORATORY DATA: WBCs 15.1, hemoglobin 7.9, platelet count of 573. BMP is normal. Creatinine 0.6. ASSESSMENT: Acute on chronic anemia with heme-positive stool, no other signs of overt bleeding such as melena or hematochezia. She had a long history of severe iron deficiency anemia with negative GI tract evaluation including EGD/colonoscopy/small-bowel capsule in 02/2016. No sign of clinically significant GI tract blood loss during this admission. RECOMMENDATIONS: 1. No intervention at this point. 2. Continue with supportive care. Transfusion if needed. 3. Dr. Salazar is on-call for GI this weekend, please call if needed. Job ID: [id number]
--- NOTE | 2018-06-30 13:51 | PDOC.CTH ---
Cardiology Progress Note - Subjective Only complaint is pain around her tumor. - Objective Vital Signs Temp Pulse Pulse Resp BP BP Pulse Ox 06/30/18 12:00 99.5 F 98 20 132/83 93 L 06/30/18 11:10 102 H 141/67 H 06/30/18 07:43 98.6 F 87 20 150/65 H 96 06/30/18 03:39 97.8 F 88 20 122/58 L 93 L Admit Weight 182 lb 12.8 oz Weight 160 lb 6.4 oz 06/29/18 06/30/18 07/01/18 06:59 06:59 06:59 Intake Total 1480 810 220 Output Total 450 Balance 1480 360 220 - Physical Examination General/Neuro: alert & oriented x3, NAD Neck: no JVD present Lungs: CTA, unlabored respirations Heart: RRR Abdomen: NT/ND Extremities: + edema B (1+) - Telemetry Telemetry Rhythm: NSR - Labs Result Diagrams: 06/30/18 05:57 06/30/18 05:57 Troponin/CKMB Troponin I Less than 0.010 ng/mL (< 0.028) 06/23/18 00:56 - Assessment/Plan 1. Non sustained SVT 2. Dermatofibrosarcome 3. Anemia PLAN: - Continue low dose Coreg as both BP and for SVT. - Asymptomatic from her SVT - Will sign off. Please call with any questions.
[2018-06-30 16:53] VITALS: BP 148/64; TEMP 99.6
--- NOTE | 2018-07-01 11:59 | DIS ---
DATE OF ADMISSION: 06/22/2018 DATE OF DISCHARGE: 06/30/2018 PRIMARY CARE PHYSICIAN: Mike Turner MD RESIDENT: Maria A Batista MD, PGY-1 ADMITTING ATTENDING: Shanna Emerson MD DISCHARGE ATTENDING: Romeo Nava MD CONSULTS: 1. Cardiology, Gibran Johns MD. 2. GI, Obi Saravia MD. 3. Oncology, Kingston Corley MD. PROCEDURES: PRBC x2 on 06/27/2018. PRIMARY DIAGNOSES: 1. Nonsustained supraventricular tachycardia. 2. Lower extremity edema secondary to diastolic heart failure. 3. Untreated dermatofibrosarcoma of left flank. 4. Anemia secondary to chronic disease and acute blood loss. 5. New onset diabetes type 2, non-insulin dependent. SECONDARY DIAGNOSES: 1. Reactive thrombocytosis secondary to dermatofibrosarcoma. 2. Resolved hypokalemia. 3. Anxiety. DISCHARGE MEDICATIONS: 1. Tylenol 650 mg p.o. q.4 hours p.r.n. for pain. 2. Coreg 3.125 mg p.o. b.i.d. with meal. 3. Flexeril 10 mg p.o. p.r.n. for pain. 4. Ferrous sulfate 325 mg p.o. q.a.m. with meal. 5. Melatonin 6 mg p.o. at bedtime p.r.n. for insomnia. 6. Metformin 1000 mg p.o. b.i.d. with meal. 7. MiraLAX 17 g p.o. daily p.r.n. for constipation. 8. Potassium chloride 10 mEq p.o. daily p.r.n. for edema and with Lasix. 9. Lasix 20 mg p.o. daily p.r.n. for leg edema. DISCONTINUED MEDICATIONS: 1. Lasix 20 p.o. daily. 2. Potassium chloride 10 mEq p.o. daily. PROCEDURES 1. Echo: LVEF 55-60% with diastolic dysfunction HISTORY OF PRESENT ILLNESS/HOSPITAL COURSE: A 78-year-old female presented to the ED with a chief complaint of lower extremity swelling that has gotten progressively worse. She has a history of diastolic heart failure in which she is medication and diet non-compliant. Pt was clinically mildly fluid overloaded and regained euvolemic status with two days of IV lasix. Repeat echo showed a preserved ejection fraction with diastolic dysfunction. Patient refused lasix repeatedly during hospital course due to her "peeing too much." She was transitioned to PRN po lasix with emphasis of importance of diet compliance. Etiology of acute HF exacerbation was due to home medication and diet non-compliance. Of note, she also has untreated left flank dermatofibrosarcoma diagonsed this year. She has been following with Heme/Onc (Dr. Corley) for this. She was placed on Gleevec; however due to cute urinary retention, it was discontinued and recs were made to follow up at [facility] in [place] to consider resection. The patient's care is complicated by the fact that she did not go to [facility] to receive further care and then stopped coming to her Radiation Oncology and Heme-Onc appointments in between at the time of diagnosis and admission. She was hospitalized one week prior for severe anemia and bleeding from her tumor requiring 2 PRBCs at [facility]. During her stay here, she again had acute bleeding from the wound, likely 200 mL of blood loss. In addition, FOBT was positive for occult blood. She required 2 PRBCs. GI was consulted and agreed that the patient's drop in hemoglobin was likely due to bleeding from the wound in addition to chronic microcytic anemia. No further intervention was made since she had had an EGD and a colonoscopy done 2 years prior, which was negative for any acute findings. She remained hemodynamically stable during the course of her time here. Efforts were made to coordinate with her daughter, who has agreed to arrange her [facility] followup appointment upon discharge. In addition, Hematology/Oncology was consulted and agreed with those recommendations as well. In regard to placement, the patient was sent to detention facility in the meantime with recommendations to continue wound care and physical therapy. During hospitalization, the patient experienced 2 episodes of SVT. She was asymptomatic. Cardiology recs were made for medical management and the patient was started on Coreg daily. It was thought that there is not need to be further intervention made due to the fact that she was asymptomatic and remained clinically stable. Due to active bleeding, the patient was not started on anticoagulation. However , this incision was complicated by the fact that she is in a hypercoagulable state due to reduced mobility and her cancer. Discussion was had in regard to this. The patient decided that she was more concerned for acute bleeding due to her 2 prior hospitalizations for this and decided to forego anticoagulation. She expressed understanding of the pros and cons to not starting anticoagulation. Recommendations were made to follow up with Hematology/Oncology in regard to this. DISPOSITION: Stable. DISCHARGE INSTRUCTIONS: 1. Location. long-term facility at [facility]. 2. Diet. ADA, heart healthy. 3. Activity. As tolerated, please continue to work with physical therapy. 4. Followup. Please follow up with PCP, Dr. Turner within the week or upon discharge from detention facility. 5. Please also follow up at [facility] to schedule an appointment with the sarcoma surgeon. 6. Please also follow up with Dr. Corley, radiation oncologist in regard to further management of sarcoma. 7. Please follow up with Dr. Johns, for continued management of nonsustained SVT. Job ID: [id number] [facility]
== END 2018-06-30 17:20 | DRG 292 ==
LOC: ERS 16:35 → 2SE 22:47 → OBSVTOIN 22:47
PROVIDERS: ADMIT Family Medicine; ATTEND Family Medicine
DX: I11.0 Hypertensive heart disease with heart failure (principal); I47.1 Supraventricular tachycardia; D62 Acute posthemorrhagic anemia; I50.33 Acute on chronic diastolic (congestive) heart failure; E11.9 Type 2 diabetes mellitus without complications; D47.3 Essential (hemorrhagic) thrombocythemia; D63.8 Anemia in other chronic diseases classified elsewhere; C44.99 Other specified malignant neoplasm of skin, unspecified; E87.6 Hypokalemia; Z92.21 Personal history of antineoplastic chemotherapy
CPT/HCPCS: 36415; 36416; 36430; 51702; 71045; 71275; 80048; 80053; 81003; 82274; 82728; 83036; 83540; 83550; 83605; 83735; 83880; 84100; 84443; 84484; 85014; 85018; 85025; 85027; 85379; 86850; 86900; 86901; 87040; 93005; 93306; 93970; 96374; J1650; J1940; P9016; Q0162

== ENCOUNTER 2018-07-06 19:57 | Emergency (ER) | payer MEDICARE, MEDICAID ==
[2018-07-06 21:43] LABS: Hemoglobin 7.5 g/dL (12.0-16.0); Mean Corpuscular HGB CONC 30.6 g/dL (32.0-36.0); Mean Corpuscular Hemoglobin 26.3 pg (27.0-31.0); Mean Platelet Volume 7.3 fL (7.4-10.4); Platelet Count 760 thou/uL (130-400); RBC Distribution Width 15.9 % (11.5-14.5); Red Blood Cell (RBC) Count 2.83 mill/uL (4.20-5.40)
[2018-07-06 22:06] LABS: Hypochromia SLIGHT = 6-15 cells (100X) (0-5/hpf); Lymphocytes 5 % (21-51); MDiff Complete? YES; Monocytes 3 % (0-10); Neutrophil 92 % (42-75); Platelet Morphology Comment Appears Increased
== END 2018-07-06 23:50 | disposition home or self-care (01) ==
LOC: ERS 19:57
DX: D64.89 Other specified anemias (principal)
CPT/HCPCS: 85025; 99285